=== PATIENT | female | born 1945 | race Caucasian/White ===

== ENCOUNTER → 2016-09-11 | Outpatient (CLI) | payer MEDICARE ==
--- NOTE | 2016-09-13 10:07 | MM ---
Reason for exam: screening (asymptomatic). Last mammogram was performed 1 year and 2 months ago. History: Patient is postmenopausal. Family history of breast cancer in maternal aunt at age 60. Benign cyst aspiration of the left breast, 1999. Benign excisional biopsy of the left breast, 1999. Physical Findings: A clinical breast exam by your physician is recommended on an annual basis and results should be correlated with mammographic findings. MG 3D Screening Mammo W/Cad Bilateral CC and MLO view(s) were taken. Prior study comparison: July 05, 2015, bilateral MG screening mammo w CAD. June 16, 2014, bilateral MG screening mammo w CAD. The breast tissue is heterogeneously dense. This may lower the sensitivity of mammography. No significant changes when compared with prior studies. ASSESSMENT: Benign, BI-RAD 2 RECOMMENDATION: Routine screening mammogram of both breasts in 1 year.
== END | disposition home or self-care (01) ==
LOC: RADMAMWWP 10:51
PROVIDERS: ATTEND Family Medicine
DX: Z12.31 Encounter for screening mammogram for malignant neoplasm of breast (principal)
CPT/HCPCS: 77063; G0202

== ENCOUNTER → 2017-11-21 | Outpatient (CLI) | payer MEDICARE ==
--- NOTE | 2017-11-21 13:13 | MR ---
EXAMINATION TYPE: MR shoulder RT wo con DATE OF EXAM: 11/21/2017 12:23 PM COMPARISON: NONE HISTORY: Rotator cuff tear or rupture of R shoulder, pain TECHNIQUE: Multiplanar multispin echo imaging of the right shoulder was performed. FINDINGS: Rotator cuff : High-grade Full thickness partial tear of the supraspinatus tendon. Several fibers are intact. No evidence for muscle retraction or atrophy at this time. Tendinosis of the subscapularis t endon noted. Infraspinatus is intact. Bursa: No bursal effusion or thickening is seen. Musculature: There is no muscular tear, contusion, or atrophy. Acromioclavicular joint : Moderate AC joint arthropathy. Subacromial spurring. Elevation of the right humeral head relative to the central glenoid axis contributing to severe subacromial impingement. Osseous structures : There are no fractures or regions of abnormal bone marrow signal intensity. Long biceps tendon : The biceps tendon is normally situated within the bicipital groove. No complete or partial biceps tendon tear is present. Tendinosis of the intra-articular portion of the biceps ten don. Glenohumeral Joint fluid : Small amount of fluid within the subacromial subdeltoid bursa. Cartilage and Bone : No focal hyaline cartilage defects are noted. No Hill-Sachs, reverse Hill-Sachs, or bony Bankart lesions are seen. Labrum : There are no SLAP or soft tissue Bankart lesions. No paralabral cysts are seen. OTHER FINDINGS : none IMPRESSION: 1. High-grade Full thickness partial tear of the supraspinatus tendon. Several fibers are intact. No evidence for muscle retraction or atrophy at this time.
== END | disposition home or self-care (01) ==
LOC: RADMRIMAIN 11:49
PROVIDERS: ATTEND Family Medicine
DX: M75.111 Incomplete rotator cuff tear or rupture of right shoulder, not specified as traumatic (principal)

== ENCOUNTER → 2017-12-06 | Outpatient (CLI) | payer MEDICARE ==
--- NOTE | 2017-12-09 13:40 | MM ---
Reason for exam: screening (asymptomatic). Last mammogram was performed 1 year and 3 months ago. History: Patient is postmenopausal. Family history of breast cancer in maternal aunt at age 60. Benign cyst aspiration of the left breast, 1999. Benign excisional biopsy of the left breast, 1999. Physical Findings: A clinical breast exam by your physician is recommended on an annual basis and results should be correlated with mammographic findings. MG 3D Screening Mammo W/Cad Bilateral CC and MLO view(s) were taken. Prior study comparison: September 11, 2016, bilateral MG 3d screening mammo w/cad. July 05, 2015, bilateral MG screening mammo w CAD. The breast tissue is heterogeneously dense. This may lower the sensitivity of mammography. No significant changes when compared with prior studies. ASSESSMENT: Benign, BI-RAD 2 RECOMMENDATION: Routine screening mammogram of both breasts in 1 year.
== END | disposition home or self-care (01) ==
LOC: RADMAMWWP 10:45
PROVIDERS: ATTEND Family Medicine
DX: Z12.31 Encounter for screening mammogram for malignant neoplasm of breast (principal)
CPT/HCPCS: 77063; 77067

== ENCOUNTER 2018-02-24 13:41 | Observation (INO) | payer MEDICARE ==
[2018-02-24] MEDS ORDERED: SODIUM CHLORIDE 0.9% 1,000 ML IV STA (14:29)
[2018-02-24] MEDS ORDERED: MORPHINE SULFATE 2 MG/ML SYRINGE IV STA (14:34)
--- NOTE | 2018-02-24 14:35 | ED ---
General Adult HPI - General Chief complaint: Recheck/Abnormal Lab/Rx Stated complaint: abn EKG Time Seen by Provider: 02/24/18 14:14 Source: patient, RN notes reviewed Mode of arrival: ambulatory Limitations: no limitations - History of Present Illness Initial comments: Patient is a pleasant 72-year-old female presenting to the emergency Department with complaints of back discomfort. Onset was last night. Discomfort feels like an ache or pressure. Discomfort is near the bra line. Discomfort is somewhat positional. Patient does not feel short of breath. No chest pain. No history of similar symptoms previously. Patient was over at the doctor's office and had EKG and was advised to come to the emergency department. Patient states symptoms are not that bad at this time. - Related Data Home Medications Medication Instructions Recorded Confirmed Atorvastatin [Lipitor] 10 mg PO HS 02/24/18 02/24/18 Losartan [Cozaar] 50 mg PO DAILY 02/24/18 02/24/18 Sodium Chloride 5% Ophth Soln 1 drops LEFT EYE Q4H 02/24/18 02/24/18 [Rodney 128] Sodium Chloride 5% Ophth Soln 1 drops RIGHT EYE Q6H 02/24/18 02/24/18 [Rodney 128] Allergies Allergy/AdvReac Type Severity Reaction Status Date / Time Tetanus Vaccines and Toxoid Allergy Rash/Hives. Verified 02/24/18 13:59 [Tetanus Vaccines & Toxoid] NAUSEA/VOMITING azithromycin AdvReac Nausea/"AWFUL Verified 02/24/18 14:40 [From Zithromax Z-Juan A] TASTE IN MOUTH" Review of Systems ROS Statement: Those systems with pertinent positive or pertinent negative responses have been documented in the HPI. ROS Other: All systems not noted in ROS Statement are negative. Constitutional: Denies: fever Eyes: Denies: eye pain ENT: Denies: ear pain Respiratory: Denies: cough Cardiovascular: Denies: chest pain Endocrine: Denies: fatigue Gastrointestinal: Denies: abdominal pain Genitourinary: Denies: dysuria Musculoskeletal: Reports: back pain Skin: Denies: rash Neurological: Denies: weakness Past Medical History Additional Past Medical History / Comment(s): PALPATATIONS. 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 History of Any Multi-Drug Resistant Organisms: None Reported Past Surgical History: Breast Surgery, Hysterectomy Additional Past Surgical History / Comment(s): Bilat. cataract surgery Past Anesthesia/Blood Transfusion Reactions: No Reported Reaction Past Psychological History: No Psychological Hx Reported Smoking Status: Never smoker Past Alcohol Use History: None Reported Past Drug Use History: None Reported General Exam Limitations: no limitations General appearance: alert, in no apparent distress Head exam: Present: atraumatic Eye exam: Present: normal appearance, PERRL ENT exam: Present: normal oropharynx Neck exam: Present: normal inspection Respiratory exam: Present: normal lung sounds bilaterally. Absent: chest wall tenderness Cardiovascular Exam: Present: regular rate, normal rhythm Expanded Peripheral pulses: 2+: Radial (R), Radial (L), Posterior Tibialis (R), Posterior Tibialis (L) GI/Abdominal exam: Present: soft. Absent: distended, tenderness Extremities exam: Present: normal inspection. 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 MD 166. QRS 94. QT 422. QTC 468. Left axis. LVH. Repolarization changes. Medical Decision Making - Medical Decision Making Patient reevaluated and resting comfortably in bed. Patient and family updated on results and plan. Case was discussed in detail with Dr. Parra, covering for Dr. medina, who will admit for Dr. Griffith. Cardiology will be consulted. Patient is made aware of aneurysm and need for lifelong evaluation regarding this. - Lab Data Result diagrams: 02/24/18 14:20 02/24/18 14:20 Lab Results 02/24/18 02/24/18 02/24/18 Range/Units 14:20 14:20 14:20 WBC 6.8 (3.8-10.6) k/uL RBC 4.72 (3.80-5.40) m/uL Hgb 15.5 (11.4-16.0) gm/dL Hct 44.9 (34.0-46.0) % MCV 95.2 (80.0-100.0) fL MCH 32.9 (25.0-35.0) pg MCHC 34.5 (31.0-37.0) g/dL RDW 14.0 (11.5-15.5) % Plt Count 252 (150-450) k/uL Neutrophils % 72 % Lymphocytes % 20 % Monocytes % 5 % Eosinophils % 1 % Basophils % 1 % Neutrophils # 4.9 (1.3-7.7) k/uL Lymphocytes # 1.4 (1.0-4.8) k/uL Monocytes # 0.3 (0-1.0) k/uL Eosinophils # 0.1 (0-0.7) k/uL Basophils # 0.0 (0-0.2) k/uL PT (9.0-12.0) sec INR (<1.2) APTT (22.0-30.0) sec Sodium 141 (137-145) mmol/L Potassium 4.0 (3.5-5.1) mmol/L Chloride 103 (98-107) mmol/L Carbon Dioxide 30 (22-30) mmol/L Anion Gap 8 mmol/L BUN 14 (7-17) mg/dL Creatinine 0.70 (0.52-1.04) mg/dL Est GFR (CKD-EPI)AfAm >90 (>60 ml/min/1.73 sqM) Est GFR (CKD-EPI)NonAf 87 (>60 ml/min/1.73 sqM) Glucose 88 (74-99) mg/dL Calcium 9.4 (8.4-10.2) mg/dL Magnesium 2.2 (1.6-2.3) mg/dL Total Bilirubin 0.9 (0.2-1.3) mg/dL AST 25 (14-36) U/L ALT 34 (9-52) U/L Alkaline Phosphatase 46 (38-126) U/L Total Creatine Kinase 66 (30-135) U/L CK-MB (CK-2) 2.1 (0.0-2.4) ng/mL CK-MB (CK-2) Rel Index 3.2 Troponin I <0.012 (0.000-0.034) ng/mL Total Protein 6.4 (6.3-8.2) g/dL Albumin 4.2 (3.5-5.0) g/dL Amylase 86 (30-110) U/L Lipase 113 (23-300) U/L 02/24/18 Range/Units 14:20 WBC (3.8-10.6) k/uL RBC (3.80-5.40) m/uL Hgb (11.4-16.0) gm/dL Hct (34.0-46.0) % MCV (80.0-100.0) fL MCH (25.0-35.0) pg MCHC (31.0-37.0) g/dL RDW (11.5-15.5) % Plt Count (150-450) k/uL Neutrophils % % Lymphocytes % % Monocytes % % Eosinophils % % Basophils % % Neutrophils # (1.3-7.7) k/uL Lymphocytes # (1.0-4.8) k/uL Monocytes # (0-1.0) k/uL Eosinophils # (0-0.7) k/uL Basophils # (0-0.2) k/uL PT 10.4 (9.0-12.0) sec INR 1.1 (<1.2) APTT 22.6 (22.0-30.0) sec Sodium (137-145) mmol/L Potassium (3.5-5.1) mmol/L Chloride (98-107) mmol/L Carbon Dioxide (22-30) mmol/L Anion Gap mmol/L BUN (7-17) mg/dL Creatinine (0.52-1.04) mg/dL Est GFR (CKD-EPI)AfAm (>60 ml/min/1.73 sqM) Est GFR (CKD-EPI)NonAf (>60 ml/min/1.73 sqM) Glucose (74-99) mg/dL Calcium (8.4-10.2) mg/dL Magnesium (1.6-2.3) mg/dL Total Bilirubin (0.2-1.3) mg/dL AST (14-36) U/L ALT (9-52) U/L Alkaline Phosphatase (38-126) U/L Total Creatine Kinase (30-135) U/L CK-MB (CK-2) (0.0-2.4) ng/mL CK-MB (CK-2) Rel Index Troponin I (0.000-0.034) ng/mL Total Protein (6.3-8.2) g/dL Albumin (3.5-5.0) g/dL Amylase (30-110) U/L Lipase (23-300) U/L - Radiology Data Radiology results: report reviewed (Computed tomography scan of the thoracic and abdominal aorta shows mild aneurysm of the upper descending thoracic aorta at 3.3 cm. No dissection.) Disposition Clinical Impression: Thoracic back pain, LVH (left ventricular hypertrophy), Thoracic aortic aneurysm Disposition: ADMITTED IP TO THIS HOSP Is patient prescribed a controlled substance at d/c from ED?: No Referrals: Siva Griffith DO [Primary Care Provider] - 1-2 days Decision Time: 16:50
[2018-02-24 14:51] LABS: Basophils % (A) 1 %; Eosinophils # (A) 0.1 k/uL (0-0.7); Eosinophils % (A) 1 %; HCT 44.9 % (34.0-46.0); HGB 15.5 gm/dL (11.4-16.0); Lymphocytes # (A) 1.4 k/uL (1.0-4.8); Lymphocytes % (A) 20 %; MCH 32.9 pg (25.0-35.0); MCHC 34.5 g/dL (31.0-37.0); MCV 95.2 fL (80.0-100.0); Mean Platelet Volume 6.5; Monocytes # (A) 0.3 k/uL (0-1.0); Monocytes % (A) 5 %; Neutrophils # (A) 4.9 k/uL (1.3-7.7); Neutrophils % (A) 72 %; Platelet Count 252 k/uL (150-450); RBC 4.72 m/uL (3.80-5.40); WBC 6.8 k/uL (3.8-10.6)
[2018-02-24 15:02] LABS: ALT 34 U/L (9-52); AST 25 U/L (14-36); Albumin 4.2 g/dL (3.5-5.0); Alkaline Phosphatase 46 U/L (38-126); Amylase 86 U/L (30-110); Anion Gap 8 mmol/L; Blood Urea Nitrogen 14 mg/dL (7-17); Calcium 9.4 mg/dL (8.4-10.2); Carbon Dioxide 30 mmol/L (22-30); Chloride 103 mmol/L (98-107); Glucose 88 mg/dL (74-99); Lipase 113 U/L (23-300); Magnesium 2.2 mg/dL (1.6-2.3); Sodium 141 mmol/L (137-145); Total Bilirubin 0.9 mg/dL (0.2-1.3); Total Protein 6.4 g/dL (6.3-8.2)
[2018-02-24 15:09] LABS: INR 1.1 (<1.2); Partial Thromboplastin Time 22.6 sec (22.0-30.0); Prothrombin Time 10.4 sec (9.0-12.0)
[2018-02-24 15:12] LABS: Creatine Kinase 66 U/L (30-135)
[2018-02-24 15:24] LABS: Creatine Kinase MB 2.1 ng/mL (0.0-2.4); Troponin I <0.012 ng/mL (0.000-0.034)
--- NOTE | 2018-02-24 16:37 | CT ---
EXAMINATION TYPE: CT angio thoracic/abd aorta DATE OF EXAM: 02/24/2018 COMPARISON: NONE HISTORY: 72-year-old female complains of left side scapular back pain. TECHNIQUE: Contiguous axial scanning of the chest, abdomen, and pelvis performed without and with IV Contrast, patient injected with 100 mL of Isovue 370. Coronal/sagittal MIP reconstructions performed. 3-D reconstructions generated on a dedicated independent workstation. CT DLP: 643 mGycm Automated exposure control for dose reduction was used. FINDINGS: Chest: Heart normal size without pericardial effusion. No evidence for acute intramural hematoma. Motion artifacts at the aortic root and ascending aorta. N o evidence for aortic dissection. There is conventional arch vessel branching anatomy. Mild aneurysm upper descending thoracic aorta 3. 3 cm. Otherwise, remainder of the aorta is normal caliber. No thoracic lymphadenopathy. Evaluation of the lung shows streaky dependent atelectasis. No consolidation or pleural effusion. ABDOMEN: Arterial phase imaging of the liver, gallbladder, adrenal glands, spleen, and pancreas show no gross anomaly. Tiny subcentimeter hypodensity posterior right kidney axial image 61 likely a tiny cortical cyst. The re is bilateral renal cortical thinning suggesting underlying chronic kidney disease. No dilated small bowel, free fluid, or free air. No mesenteric or retroperitoneal lymphadenopathy. Moderate stool in the right side of the colon. No pericolonic inflammatory change. No evidence for AAA. Pelvis: Bladder urine distended. Uterus surgically absent. Both ovaries are seen. No abnormal fluid collectio n in the pelvis or pelvic lymphadenopathy. Bones: Degenerative disc disease L3-L4. Facet arthropathy mid to lower lumbar spine. Levoconvex scoliosis faye mbar spine. No osseous disc process. IMPRESSION: MILD ANEURYSM OF THE UPPER DESCENDING THORACIC AORTA AT 3.3 CM. NO EVIDENCE FOR AORTIC DISSECTION, OT HER ACUTE AORTIC PATHOLOGY, OR ACUTE PULMONARY PROCESS.
[2018-02-24] MEDS ORDERED: ASPIRIN 81 MG PO STA (16:50)
[2018-02-24] MEDS ORDERED: NITROGLYCERIN SL TABS 0.4 MG TAB SUBLINGUAL PRN (16:50)
[2018-02-24] MEDS: NITROGLYCERIN OINT 1 INCH/GM PACKET TOPICAL SCH ×2 (17:57→23:15)
[2018-02-24 20:41] LABS: Creatine Kinase 52 U/L (30-135)
[2018-02-24 20:47] VITALS: RESP 16
[2018-02-24 20:55] LABS: Creatine Kinase MB 1.4 ng/mL (0.0-2.4); Troponin I <0.012 ng/mL (0.000-0.034)
[2018-02-24] MEDS ORDERED: ATORVASTATIN 10 MG TAB PO SCH (22:00)
[2018-02-25 02:51] LABS: Cholesterol 123 mg/dL (<200); HDL Cholesterol 40 mg/dL (40-60); LDL Cholesterol,Calculated 62 mg/dL (0-99); Triglycerides 103 mg/dL (<150)
[2018-02-25 03:15] LABS: Creatine Kinase MB 1.4 ng/mL (0.0-2.4); Troponin I 0.016 ng/mL (0.000-0.034)
[2018-02-25] MEDS: SODIUM CHLORIDE 5% OPHTH DROPS 15 ML BTL RIGHT EYE SCH ×3 (05:11→18:40)
[2018-02-25] MEDS: SODIUM CHLORIDE 5% OPHTH DROPS 15 ML BTL LEFT EYE SCH ×5 (05:11→19:41)
--- NOTE | 2018-02-25 05:18 | HP ---
HISTORY AND PHYSICAL CHIEF COMPLAINTS: Upper back pain and palpitation. HISTORY OF PRESENT ILLNESS: This 72-year-old woman with a past medical history of multiple medical problems including hypertension, hyperlipidemia, history of pneumonia, history of palpitations, appendectomy, breast surgery being followed by Dr. Griffith in the outpatient setting was complaining of back pain. The patient was watching TV last night and the patient had excruciating upper back pain, pain 8 out of 10 in intensity, with radiation in the upper back on the to the left side with some palpitations. The patient also had other joint pains and patient thought it was part of the same syndrome and the patient did not come to the hospital until today because of the lack of improvement of the pain. After coming to the hospital, patient was given medication. The patient is much better. CT scan showed mild aneurysm of the upper descending thoracic aorta at 3.3 cm. No evidence of aortic dissection was noted. No other aortic pathology was also noted and patient admitted to the hospital for further evaluation and treatment. There is no history of fever, rigors or chills. No history of headache, loss of consciousness, seizures. The basic labs, CBC and BMP, troponins are normal. The EKG on admission showed left ventricular hypertrophy and nonspecific ST-T changes. PAST MEDICAL HISTORY: History of hyperlipidemia, history of DJD, history of pneumonia, history of breast surgery, appendectomy. MEDICATIONS: Prior to admission include home medications are: 1. Reji ophthalmic ointment, ophthalmic drops. 2. Cozaar 50 mg daily. 3. Lipitor 10 mg q.h.s. ALLERGIES: ARE TETANUS TOXOID AND AZITHROMYCIN. FAMILY HISTORY: History of coronary artery disease, diabetes and colon cancer in the family. SOCIAL HISTORY: No history of smoking. No history of alcohol intake. REVIEW OF SYSTEMS: ENT: No diminished vision. No diminished hearing. CARDIOVASCULAR: As mentioned earlier. RESPIRATIONS: As mentioned earlier. GI: No nausea or vomiting. : No dysuria or hematuria. NERVOUS SYSTEM: No numbness or weakness. ALLERGY/IMMUNOLOGY: No asthma or hayfever. MUSCULOSKELETAL: As mentioned earlier. HEMATOLOGY/ONCOLOGY: No history of anemia. ENDOCRINE: No history of diabetes or hypothyroidism. CONSTITUTIONAL: As mentioned earlier. DERMATOLOGY: Negative. RHEUMATOLOGY: Negative. PSYCHIATRY: As mentioned earlier. PHYSICAL EXAMINATION: Alert, oriented times three. VITAL SIGNS: Pulse 63, blood pressure 126/60, respirations 16, temperature 97.6, pulse ox 94% on room air. HEENT: Conjunctivae normal. Oral mucosa moist. NECK is no jugular venous distention. No carotid bruit. No lymph node enlargement. CARDIOVASCULAR: S1-S2 muffled. No S3, no S4. RESPIRATORY: Breath sounds diminished in the bases. No rhonchi. No crackles. ABDOMEN: Soft, nontender. No mass palpable. LEGS: No edema. No swelling. CENTRAL NERVOUS SYSTEM: Higher functions as mentioned earlier. Moves all 4 limbs. No focal motor or sensory deficits. Lymphatics: No lymph nodes palpable in the neck, axillae or groin. SKIN: No ulcer, rash or bleeding. LAB STUDIES: CBC within normal limits. CMP within normal limits. ASSESSMENT: 1. Upper back and chest palpitations, rule out coronary artery disease. 2. 3.3 cm mild aneurysm of the upper descending thoracic aorta without any dissection or other pathology. 3. Hypertension. 4. Hyperlipidemia. 5. Degenerative joint disease. 6. History of pneumonia. 7. History of palpitations. 8. History of Fuchs dystrophy. RECOMMENDATIONS AND DISCUSSION: In this 72-year-old woman who presented with multiple complex medical issues. We will monitor the patient closely. Continue the current medications. Continue symptomatic treatment. We will continue with beta blockers and as well as aspirin. Cardiology consultation. Possible stress test. Otherwise, the home medications are reconciled. I would also recommend repeat labs in the morning. N.p.o. after midnight. The prognosis guarded because of multiple complex medical issues and further recommendations to follow. Discussed with the family. A copy of dictation being forwarded to Dr. Griffith, who is the primary physician. MMODL / IJN: [id number] /
[2018-02-25] MEDS ORDERED: ENOXAPARIN 60 MG/0.6 ML SYRINGE SQ STA (07:29)
[2018-02-25] MEDS ORDERED: NITROGLYCERIN SL TABS 0.4 MG TAB SUBLINGUAL PRN (07:29)
[2018-02-25] MEDS ORDERED: ASPIRIN 325 MG TAB PO STA (07:29)
[2018-02-25] MEDS ORDERED: ALPRAZolam 0.5 MG TAB PO PRN (07:29)
[2018-02-25] MEDS ORDERED: ALPRAZolam 0.25 MG TAB PO PRN (07:29)
[2018-02-25] MEDS ORDERED: SODIUM CHLORIDE 0.9% 1,000 ML in EMPTY BAG 1 BAG IV ONE (07:29)
[2018-02-25] MEDS ORDERED: ATORVASTATIN 80 MG TAB PO STA (07:29)
[2018-02-25] MEDS ORDERED: METOPROLOL TARTRATE 12.5 MG TAB PO SCH (09:00)
[2018-02-25] MEDS ORDERED: LOSARTAN 50 MG TAB PO SCH (09:00)
--- NOTE | 2018-02-25 10:01 | CONS ---
CONSULTATION This is a 72-year-old lady with a history of hypertension and hyperlipidemia, sees Dr. Griffith in the outpatient setting. She came into the hospital with discomfort in the upper back and also in the anterior chest and both shoulders. The quality of the pain is somewhat atypical. However, she has precordial ST-T changes raising the possibility of ischemia with normal troponins. She had a CT scan of the chest that was performed and there is no evidence of any aortic pathology. Her discomfort seemed to have occurred when she was not doing much physical activity. She does carry a diagnosis of hypertension but her blood pressure was not significantly elevated when she came into the emergency room. At the time of my evaluation, her upper back discomfort has resolved, but she does have discomfort in the shoulders, very nondescript discomfort, feels like an achy sensation in the upper chest and mostly in the back, but she is quite comfortable. She was apparently at her doctor's office and EKG was performed and she was sent here. PAST MEDICAL HISTORY: 1. Hypertension. 2. Hyperlipidemia. 3. No evidence of prior myocardial infarction, CVA, or diabetes. MEDICATIONS: At home include Lipitor 10 mg daily, losartan 50 mg daily. This patient is status post hysterectomy and some breast surgery and cataract surgery. ALLERGIES: She is allergic to ZITHROMAX. PHYSICAL EXAMINATION: Blood pressure is 128/70, pulse rate is 64 per minute, regular. HEENT: Unremarkable. Fundus was not examined by me. Neck is supple. There is no JVD. I do not hear a carotid bruit. Heart exam reveals S1, S2 with a short systolic murmur at left sternal border. Lungs are clear. Abdomen is soft, nontender. Lower extremities reveal normal pulses. No edema. Central nervous system is normal. EKG revealed sinus mechanism with ST-T abnormality and voltage criteria for LVH, ischemia cannot be excluded. LABORATORY DATA: Revealed unremarkable troponins. IMPRESSION: 1. Chest and upper back discomfort, cannot exclude angina. No evidence of any dissection or any aortic pathology of significance. Troponins are unremarkable. 2. Hypertension. 3. Hypercholesterolemia. RECOMMENDATION: Patient has nondescript chest pain, EKG is abnormal. I am recommending that we will give her some Lovenox and beta marguerite. Proceed with coronary angiography. Based on findings, will make further recommendations. Will also do an echocardiogram. I discussed my thoughts in detail with the patient. Thank you very much for the consult. ELLYL / IJN: [id number] /
[2018-02-25] MEDS ORDERED: IV FLUID CONTINUATION 700 ML IV ONE (10:40)
[2018-02-25] MEDS ORDERED: diphenhydrAMINE 50 MG/ML 1 ML VIAL IVP ONE (11:12)
[2018-02-25] MEDS ORDERED: MIDAZOLAM 2 MG/2 ML VIAL IVP ONE (11:12)
[2018-02-25] MEDS ORDERED: LIDOCAINE 1% (PF) 10MG/ML VIAL SQ ONE (11:14)
[2018-02-25] MEDS ORDERED: LIDOCAINE 1% INJ 10MG/ML (20 ML MDV) SQ ONE (11:14)
[2018-02-25] MEDS: VERAPAMIL SYRINGE (5 MG/10 ML) INTRAARTER ONE ×2 (11:17→11:30)
[2018-02-25] MEDS ORDERED: IOPAMIDOL-370 100ML BTL INJ ONE (11:31)
[2018-02-25] MEDS ORDERED: RX INFO: IV CONTRAST WAS GIVEN 1 EACH MISC MISCELLANE PRN (11:36)
[2018-02-25] MEDS ORDERED: SODIUM CHLORIDE 0.9% 1,000 ML IV SCH (11:45)
--- NOTE | 2018-02-25 12:05 | ECHOF ---
Referral Reason:Pain MEASUREMENTS -------- HEIGHT: 154.9 cm WEIGHT: 57.2 kg BP: RVIDd: 2.5 cm (< 3.3) IVSd: 1.5 cm (0.6 - 1.1) LVIDd: 3.3 cm (3.9 - 5.3) LVPWd: 1.3 cm (0.6 - 1.1) IVSs: 1.7 cm LVIDs: 1.6 cm LVPWs: 1.7 cm LAESV Index (A-L): 25.42 ml/m Ao Diam: 2.8 cm (2.0 - 3.7) AV Cusp: 1.8 cm (1.5 - 2.6) LA Diam: 2.3 cm (2.7 - 3.8) MV EXCURSION: 17.007 mm (> 18.000) MV EF SLOPE: 73 mm/s (70 - 150) EPSS: 0.1 cm MV E Boris: 0.79 m/s MV DecT: 172 ms MV A Boris: 1.06 m/s MV E/A Ratio: 0.74 RAP: 5.00 mmHg RVSP: 16.65 mmHg FINDINGS -------- Sinus rhythm. This was a technically difficult study with suboptimal views. The cavity size is decreased. There is moderate concentric left ventricular hypertrophy. Overall left ventricular systolic function is normal with, an EF between 55 - 60 %. The right ventricle is normal in size. The left atrium is normal in size. The right atrium is normal in size. Lumason used The aortic valve is trileaflet, and appears structurally normal. No aortic stenosis or regurgitation. The mitral valve leaflets are mildly thickened. Mild mitral annular calcification present. Mild m itral regurgitation is present. Mild tricuspid regurgitation present. The right ventricular systolic pressure, as measured by Doppl er, is 16.65mmHg. Pulmonic valve appears structurally normal. The aortic root size is normal. The pericardium is normal. CONCLUSIONS -------- 1. Sinus rhythm. 2. This was a technically difficult study with suboptimal views. 3. The cavity size is decreased. 4. There is moderate concentric left ventricular hypertrophy. 5. Overall left ventricular systolic function is normal with, an EF between 55 - 60 %. 6. The right ventricle is normal in size. 7. The left atrium is normal in size. 8. The right atrium is normal in size. 9. Lumason used 10. The aortic valve is trileaflet, and appears structurally normal. No aortic stenosis or regurgitat ion. 11. The mitral valve leaflets are mildly thickened. 12. Mild mitral annular calcification present. 13. Mild mitral regurgitation is present. 14. Mild tricuspid regurgitation present. 15. The right ventricular systolic pressure, as measured by Doppler, is 16.65mmHg. 16. Pulmonic valve appears structurally normal. 17. The aortic root size is normal. 18. The pericardium is normal. ELECTRIC CELL TENDER: Francy Osorio RDCS
--- NOTE | 2018-02-25 12:16 | CC ---
CARDIAC CATHETERIZATION REPORT DATE OF SERVICE: 02/25/2018. PROCEDURE: Left heart catheterization, coronary angiography. PERFORMED BY: Dr. Alyssa Velázquez. Moderate conscious sedation time was 18 minutes. Patient was administered Versed and Benadryl. Oxygen saturation, hemodynamics and EKG were monitored closely. CLINICAL INFORMATION: Mrs. Harmony Mcdaniel is a 72-year-old lady with a history of hypertension who came to the hospital with chest pain had also mid scapular discomfort with radiation to shoulders. Her CT angiography was negative for any aortic pathology. Because of significant EKG changes suggestive of ischemia as well as LVH, she was advised coronary angiography. Risks, benefits, options, rationale were discussed. PROCEDURE NOTE: Under local anesthesia and strict aseptic precautions, a 6-Sinhala introducer was placed in the right radial artery. Using an Ultimate 1 catheter I performed selective coronary angiography of the left system and checked LV pressures. Using a 3.5 curve right Luis Armando catheter, I performed selective coronary angiography of the right coronary artery. LV gram was not performed. CARDIAC CATHETERIZATION FINDINGS: The left ventricle end-diastolic pressure is about 20 mmHg without any gradient across the aortic valve. CORONARY ANGIOGRAPHY FINDINGS: RIGHT CORONARY ARTERY: Small nondominant vessel with limited amount of myocardium being supplied by it. LEFT MAIN CORONARY ARTERY: This is a short patent vessel free of significant disease that immediately bifurcates into LAD and circumflex. LEFT ANTERIOR DESCENDING CORONARY ARTERY: Good caliber vessel extends along the anterior wall, gives off septal and diagonal branches, runs all the way to the apex supplies a sizable amount of myocardium, curves over the apex to supply the inferoapical portion of left ventricle. In the midportion, right after septal and diagonal branches, there is a 35% narrowing involving the LAD. LEFT POSTERIOR CIRCUMFLEX CORONARY ARTERY: Technically a very dominant vessel, gives off 3 obtuse marginal branches and distally continues as a posterolateral branch. There is no significant disease involving the circumflex or its branches other than minor irregularities. It appears that the third obtuse marginal branch continues as a PDA and the distal circumflex continues as a PLV branch. There is no significant disease in involving circumflex system. LEFT VENTRICULOGRAM: This was not performed. FINAL IMPRESSION: This patient has a left dominant system, minor irregularities, no significant disease and acceptable filling pressures. Left ventriculogram was not performed. RECOMMENDATIONS: Continued medical therapy is advised. Beta blockers were added on. LV function will be assessed by echocardiogram. The medical therapy is advised and patient will be discharged later on today if she remains stable. ZURDO / JIM: [id number] /
--- NOTE | 2018-02-25 12:22 | LTR ---
February 25, 2018 Re: Harmony Mcdaniel Dear Dr. Griffith: Thank you for the opportunity to participate in the care of Mrs. Mcdaniel. I am pleased to report to you that this lady does not have any significant obstructive CAD. She has what seems to be hypertrophic cardiomyopathy of nonobstructive type for which we will add beta blockers. No aggressive therapy is advised. Thank you for your referral and please call for questions. With kindest regards. Sincerely yours, MD ZURDO Osman / BJN: [id number] /
[2018-02-25 19:49] VITALS: BP 147/69; PULSE 70; TEMP 98.4
--- NOTE | 2018-02-25 22:05 | DS ---
DISCHARGE SUMMARY DATE OF SERVICE: 02/25/2018 FINAL DIAGNOSES: 1. Upper back pain and chest palpitation, possibly musculoskeletal. Cardiac catheterization showed minor irregularities and no significant coronary artery disease. 2. 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 3. Hypertension. 4. Hyperlipidemia. 5. Degenerative joint disease. 6. History of pneumonia. 7. History of palpitation. 8. History of Fuchs dystrophy. DISCHARGE DISPOSITION: The patient will be discharged in stable condition with guarded prognosis. Cardiology recommended that the patient follow up in the outpatient setting. HISTORY OF PRESENT ILLNESS: This 72-year-old woman with a past medical history of multiple medical problems, being followed by Dr. Griffith in the outpatient setting, was admitted with upper back and chest palpitations. Myocardial infarction was ruled out. Cardiology performed a stress test which showed no significant disease. On exam, vitals are stable. CARDIOVASCULAR SYSTEM: S1, S2 muffled. ABDOMEN: Soft. NERVOUS SYSTEM: No focal deficit. The patient will be discharged in stable condition with guarded prognosis. DISCHARGE ADVICE AND MEDICATIONS: 1. Diet is cardiac. 2. Activity limited until followup.. 3. Follow up with Dr. Griffith in 2 to 3 days. 4. Follow up with Dr. Janine Velázquez as advised. 5. Lipitor 10 mg at bedtime. 6. Cozaar 50 mg p.o. daily. 7. Lopressor 12.5 mg p.o. daily. 8. Ophthalmic ointments to be continued. Once again, the patient will be discharged in stable condition with guarded prognosis. MMODL / IJN: [id number] /
[2018-02-26] MEDS ORDERED: ASPIRIN 325 MG TAB PO SCH (09:00)
[2018-02-26] MEDS ORDERED: ASPIRIN 81 MG PO SCH (09:00)
== END 2018-02-25 20:21 | disposition home or self-care (01) ==
LOC: EC 13:41 → 3OBS 16:50
PROVIDERS: ADMIT Internal Medicine; ATTEND Internal Medicine
DX: M54.6 Pain in thoracic spine (principal); R00.2 Palpitations; I71.2 Thoracic aortic aneurysm, without rupture; E78.5 Hyperlipidemia, unspecified; Z87.01 Personal history of pneumonia (recurrent); Z88.1 Allergy status to other antibiotic agents; Z88.7 Allergy status to serum and vaccine; Z83.3 Family history of diabetes mellitus; Z82.49 Family history of ischemic heart disease and other diseases of the circulatory system; Z80.0 Family history of malignant neoplasm of digestive organs; I11.9 Hypertensive heart disease without heart failure; M19.90 Unspecified osteoarthritis, unspecified site; E78.00 Pure hypercholesterolemia, unspecified; H18.51 Endothelial corneal dystrophy; Z79.899 Other long term (current) drug therapy
CPT/HCPCS: 99285; 96374 ×2; 96361 ×9; 96372; 36415; 93005; 93458; 80061; 80053; 82150; 82550 ×2; 82553 ×2; 83690; 83735; 84484 ×2; 85025; 85610; 85730; 75635; 71275; G0378 ×2; C8929; C1769 ×2; C1894; J2250; J1200; J2001; J1650; J2270; Q9950; Q9967 ×2; 93306

== ENCOUNTER → 2019-04-29 | Outpatient (CLI) | payer MEDICARE ==
--- NOTE | 2019-04-30 11:19 | MM ---
Reason for exam: screening (asymptomatic). Last mammogram was performed 1 year and 5 months ago. History: Patient is postmenopausal. Family history of breast cancer in maternal aunt at age 60. Benign cyst aspiration of the left breast, 1999. Benign excisional biopsy of the left breast, 1999. Physical Findings: A clinical breast exam by your physician is recommended on an annual basis and results should be correlated with mammographic findings. MG 3D Screening Mammo W/Cad Bilateral CC and MLO view(s) were taken. Prior study comparison: December 06, 2017, bilateral MG 3d screening mammo w/cad. September 11, 2016, bilateral MG 3d screening mammo w/cad. The breast tissue is heterogeneously dense. This may lower the sensitivity of mammography. No suspicious abnormality. Post biopsy change on the left. Left biopsy marker noted. No significant changes when compared with prior studies. ASSESSMENT: Benign, BI-RAD 2 RECOMMENDATION: Routine screening mammogram of both breasts in 1 year.
== END | disposition home or self-care (01) ==
LOC: RADMAMWWP 13:50
PROVIDERS: ATTEND Family Medicine
DX: Z12.31 Encounter for screening mammogram for malignant neoplasm of breast (principal)
CPT/HCPCS: 77063; 77067

== ENCOUNTER → 2020-05-20 | Outpatient (CLI) | payer MEDICARE ==
--- NOTE | 2020-05-24 11:14 | MM ---
Reason for exam: screening (asymptomatic). Last mammogram was performed 1 year and 1 month ago. History: Patient is postmenopausal. Family history of breast cancer in maternal aunt at age 60. Benign cyst aspiration of the left breast, 1999. Benign excisional biopsy of the left breast, 1999. Physical Findings: A clinical breast exam by your physician is recommended on an annual basis and results should be correlated with mammographic findings. MG 3D Screening Mammo W/Cad Bilateral CC and MLO view(s) were taken. Prior study comparison: April 29, 2019, bilateral MG 3d screening mammo w/cad. December 06, 2017, bilateral MG 3d screening mammo w/cad. The breast tissue is heterogeneously dense. This may lower the sensitivity of mammography. Previous mammotome biopsy in the left breast. Post excision changes on the left. No significant changes when compared with prior studies. ASSESSMENT: Benign, BI-RAD 2 RECOMMENDATION: Routine screening mammogram of both breasts in 1 year.
== END | disposition home or self-care (01) ==
LOC: RADMAMWWP 11:14
PROVIDERS: ATTEND Family Medicine
DX: Z12.31 Encounter for screening mammogram for malignant neoplasm of breast (principal)
CPT/HCPCS: 77063; 77067

== ENCOUNTER 2020-11-10 11:42 | Inpatient (IN) | payer MEDICARE ==
[2020-11-10] MEDS ORDERED: SODIUM CHLORIDE 0.9% 1,000 ML IV STA (12:27)
[2020-11-10] MEDS ORDERED: ONDANSETRON 4 MG/2 ML VIAL IVP STA (12:27)
[2020-11-10 12:46] LABS: Basophils # (A) 0.1 k/uL (0-0.2); Basophils % (A) 1 %; Eosinophils % (A) 1 %; HCT 42.8 % (34.0-46.0); HGB 15.1 gm/dL (11.4-16.0); Lymphocytes # (A) 0.5 k/uL (1.0-4.8); Lymphocytes % (A) 13 %; MCH 32.9 pg (25.0-35.0); MCHC 35.3 g/dL (31.0-37.0); MCV 93.3 fL (80.0-100.0); Mean Platelet Volume 7.9; Monocytes # (A) 0.3 k/uL (0-1.0); Monocytes % (A) 7 %; Neutrophils # (A) 2.8 k/uL (1.3-7.7); Neutrophils % (A) 77 %; Platelet Count 149 k/uL (150-450); RBC 4.59 m/uL (3.80-5.40); RDW 12.1 % (11.5-15.5); WBC 3.7 k/uL (3.8-10.6)
[2020-11-10 13:00] LABS: ALT 30 U/L (4-34); AST 42 U/L (14-36); African American GFR (CKD) >90 (>60 ml/min/1.73 sqM); Albumin 4.1 g/dL (3.5-5.0); Alkaline Phosphatase 47 U/L (38-126); Anion Gap 12 mmol/L; Blood Urea Nitrogen 17 mg/dL (7-17); Calcium 8.9 mg/dL (8.4-10.2); Carbon Dioxide 24 mmol/L (22-30); Chloride 101 mmol/L (98-107); Glucose 93 mg/dL (74-99); Lipase 107 U/L (23-300); Magnesium 2.1 mg/dL (1.6-2.3); Non-African American GFR(CKD) 86 (>60 ml/min/1.73 sqM); Potassium 4.2 mmol/L (3.5-5.1); Sodium 137 mmol/L (137-145); Total Bilirubin 0.6 mg/dL (0.2-1.3); Total Protein 6.6 g/dL (6.3-8.2)
--- NOTE | 2020-11-10 13:26 | XR ---
EXAMINATION TYPE: XR chest 1V portable DATE OF EXAM: 11/10/2020 COMPARISON: NONE HISTORY: Cough TECHNIQUE: Single frontal view of the chest is obtained. FINDINGS: There are overlying leads. Patient is rotated. Aorta is dense. There is no focal air space opacity, pleural effusion, or pneumothorax seen. The cardiac silhouette size is within normal limits . The osseous structures are intact, there is a spinal curvature. IMPRESSION: No acute process.
--- NOTE | 2020-11-10 14:11 | ED ---
General Adult HPI - General Chief complaint: Nausea/Vomiting/Diarrhea Stated complaint: NVD Source: patient, RN notes reviewed Mode of arrival: ambulatory Limitations: no limitations - History of Present Illness Initial comments: 75-year-old female with a past medical history of palpitations, hyperlipidemia, osteoporosis, pneumonia presents to the emergency room for a chief complaint of nausea vomiting diarrhea x 1 week. Patient reports that she has had nausea vomiting and diarrhea for the past 4 days. States it is watery diarrhea. States she has been able to drink fluids with this. Patient also admits to cough, minimal shortness of breath. She also complains of a pain in her back when she is coughing. Denies any chest pain. Patient has no other complaints at this time including chest pain, abdominal pain, headache, or visual changes. - Related Data Home Medications Medication Instructions Recorded Confirmed Atorvastatin [Lipitor] 10 mg PO HS 02/24/18 11/10/20 Losartan [Cozaar] 50 mg PO DAILY 02/24/18 11/10/20 Sodium Chloride 5% Ophth Soln 1 drops LEFT EYE Q4H 02/24/18 11/10/20 [Rodney 128] Sodium Chloride 5% Ophth Soln 1 drops RIGHT EYE Q6H 02/24/18 11/10/20 [Rodney 128] Azithromycin [Zithromax Z-pack (6 See Taper PO DAILY 11/10/20 11/10/20 tabs)] Metoprolol Tartrate [Lopressor] 25 mg PO DAILY 11/10/20 11/10/20 amLODIPine [Norvasc] 5 mg PO HS 11/10/20 11/10/20 Allergies Allergy/AdvReac Type Severity Reaction Status Date / Time Tetanus Vaccines and Toxoid Allergy Rash/Hives. Verified 11/10/20 14:00 [Tetanus Vaccines & Toxoid] NAUSEA/VOMITING azithromycin AdvReac Nausea/"AWFUL Verified 11/10/20 14:00 [From Zithromax Z-Juan A] TASTE IN MOUTH" Review of Systems ROS Statement: Those systems with pertinent positive or pertinent negative responses have been documented in the HPI. ROS Other: All systems not noted in ROS Statement are negative. Past Medical History Past Medical History: Eye Disorder, Hyperlipidemia, Osteoarthritis (OA), Pneumonia Additional Past Medical History / Comment(s): PALPATATIONS. 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 cataract surgery 2004, breast biopsy Past Anesthesia/Blood Transfusion Reactions: No Reported Reaction Past Psychological History: No Psychological Hx Reported Smoking Status: Never smoker Past Alcohol Use History: None Reported Past Drug Use History: None Reported - Past Family History Mother Family Medical History: Coronary Artery Disease (CAD), Diabetes Mellitus Father Family Medical History: Coronary Artery Disease (CAD) Sister(s) Family Medical History: No Reported History Brother(s) Family Medical History: No Reported History Son(s) Family Medical History: Coronary Artery Disease (CAD), CVA/TIA Daughter(s) Family Medical History: Cancer Additional Family Medical History / Comment(s): colon cancer General Exam Limitations: no limitations General appearance: alert, in no apparent distress Head exam: Present: atraumatic, normocephalic, normal inspection Eye exam: Present: normal appearance, PERRL, EOMI. Absent: scleral icterus, conjunctival injection, periorbital swelling ENT exam: Present: normal exam, mucous membranes moist Neck exam: Present: normal inspection, full ROM. Absent: tenderness, meningismus, lymphadenopathy Respiratory exam: Present: normal lung sounds bilaterally. Absent: respiratory distress, wheezes, rales, rhonchi, stridor Cardiovascular Exam: Present: regular rate, normal rhythm, normal heart sounds. Absent: systolic murmur, diastolic murmur, rubs, gallop, clicks GI/Abdominal exam: Present: soft, normal bowel sounds. Absent: distended, ten derness, guarding, rebound, rigid Neurological exam: Present: alert Course Vital Signs 11/10/20 11/10/20 12:13 14:07 Temperature 98.8 F 99.6 F Pulse Rate 93 85 Respiratory 18 20 Rate Blood Pressure 129/79 128/74 O2 Sat by Pulse 95 92 L Oximetry EKG Findings - EKG Comments: EKG Findings:: Normal sinus rhythm. Ventricular rate 79, KS interval 178, QTc 502. There are several T-wave inversions noted on the lateral and precordial lead. This was compared to previous EKG from 2018 which is similar in nature. Medical Decision Making - Medical Decision Making Vitals are stable. 92-95% on room air. Patient is well-appearing. CBC shows slight leukopenia 3.7 as well as lymphocytopenia. CMP unremarkable. Coronavirus was detected. Chest x-ray shows no acute process. EKG does show T- wave inversions in the precordial and lateral leads consistent with previous EKG from 2018. Given shortness of breath and troponin was obtained which was slightly elevated at 0.037. Case discussed with patient and son who do prefer patient to be admitted. Case discussed with Dr. Doherty and Sincere. Dr. Post accepts the admission. - Lab Data Result diagrams: 11/10/20 12:33 11/10/20 12:33 Lab Results 11/10/20 11/10/20 11/10/20 Range/Units 12:33 12:33 12:33 WBC 3.7 L (3.8-10.6) k/uL RBC 4.59 (3.80-5.40) m/uL Hgb 15.1 (11.4-16.0) gm/dL Hct 42.8 (34.0-46.0) % MCV 93.3 (80.0-100.0) fL MCH 32.9 (25.0-35.0) pg MCHC 35.3 (31.0-37.0) g/dL RDW 12.1 (11.5-15.5) % Plt Count 149 L (150-450) k/uL MPV 7.9 Neutrophils % 77 % Lymphocytes % 13 % Monocytes % 7 % Eosinophils % 1 % Basophils % 1 % Neutrophils # 2.8 (1.3-7.7) k/uL Lymphocytes # 0.5 L (1.0-4.8) k/uL Monocytes # 0.3 (0-1.0) k/uL Eosinophils # 0.0 (0-0.7) k/uL Basophils # 0.1 (0-0.2) k/uL Sodium 137 (137-145) mmol/L Potassium 4.2 (3.5-5.1) mmol/L Chloride 101 (98-107) mmol/L Carbon Dioxide 24 (22-30) mmol/L Anion Gap 12 mmol/L BUN 17 (7-17) mg/dL Creatinine 0.69 (0.52-1.04) mg/dL Est GFR (CKD-EPI)AfAm >90 (>60 ml/min/1.73 sqM) Est GFR (CKD-EPI)NonAf 86 (>60 ml/min/1.73 sqM) Glucose 93 (74-99) mg/dL Calcium 8.9 (8.4-10.2) mg/dL Magnesium 2.1 (1.6-2.3) mg/dL Total Bilirubin 0.6 (0.2-1.3) mg/dL AST 42 H (14-36) U/L ALT 30 (4-34) U/L Alkaline Phosphatase 47 (38-126) U/L Troponin I 0.037 H* (0.000-0.034) ng/mL Total Protein 6.6 (6.3-8.2) g/dL Albumin 4.1 (3.5-5.0) g/dL Lipase 107 (23-300) U/L Coronavirus (PCR) (Not Detectd) 11/10/20 Range/Units 12:45 WBC (3.8-10.6) k/uL RBC (3.80-5.40) m/uL Hgb (11.4-16.0) gm/dL Hct (34.0-46.0) % MCV (80.0-100.0) fL MCH (25.0-35.0) pg MCHC (31.0-37.0) g/dL RDW (11.5-15.5) % Plt Count (150-450) k/uL MPV Neutrophils % % Lymphocytes % % Monocytes % % Eosinophils % % Basophils % % Neutrophils # (1.3-7.7) k/uL Lymphocytes # (1.0-4.8) k/uL Monocytes # (0-1.0) k/uL Eosinophils # (0-0.7) k/uL Basophils # (0-0.2) k/uL Sodium (137-145) mmol/L Potassium (3.5-5.1) mmol/L Chloride (98-107) mmol/L Carbon Dioxide (22-30) mmol/L Anion Gap mmol/L BUN (7-17) mg/dL Creatinine (0.52-1.04) mg/dL Est GFR (CKD-EPI)AfAm (>60 ml/min/1.73 sqM) Est GFR (CKD-EPI)NonAf (>60 ml/min/1.73 sqM) Glucose (74-99) mg/dL Calcium (8.4-10.2) mg/dL Magnesium (1.6-2.3) mg/dL Total Bilirubin (0.2-1.3) mg/dL AST (14-36) U/L ALT (4-34) U/L Alkaline Phosphatase (38-126) U/L Troponin I (0.000-0.034) ng/mL Total Protein (6.3-8.2) g/dL Albumin (3.5-5.0) g/dL Lipase (23-300) U/L Coronavirus (PCR) Detected A (Not Detectd) Disposition Clinical Impression: Elevated troponin, Lab test positive for detection of COVID-19 virus, Shortness of breath, Cough, Nausea, vomiting, and diarrhea Disposition[facility] Condition: Fair Is patient prescribed a controlled substance at d/c from ED?: No Referrals: Siva Griffith DO [Primary Care Provider] - 1-2 days Time of Disposition: 14:36
[2020-11-10] MEDS ORDERED: ACETAMINOPHEN TAB 325 MG TAB PO STA (14:24)
[2020-11-10] MEDS ORDERED: NALOXONE 0.4 MG/ML 1 ML VIAL IV PRN (14:37)
[2020-11-10] MEDS ORDERED: ACETAMINOPHEN TAB 325 MG TAB PO PRN (14:37)
[2020-11-10] MEDS ORDERED: MORPHINE SULFATE 2 MG/ML SYRINGE IV PRN (14:37)
[2020-11-10] MEDS: DEXAMETHASONE SOD PHOSPHATE 10 MG/ML 1 ML VIAL IV SCH (14:56)
[2020-11-10] MEDS: SODIUM CHLORIDE 0.9% 1,000 ML IV SCH (14:56)
[2020-11-10] MEDS: SODIUM CHLORIDE 5% OPHTH DROPS 15 ML BTL LEFT EYE SCH ×3 (15:15→23:26)
[2020-11-10] MEDS: SODIUM CHLORIDE 5% OPHTH DROPS 15 ML BTL RIGHT EYE SCH ×2 (15:16→20:18)
[2020-11-10] MEDS ORDERED: BENZONATATE 100 MG CAP PO SCH (16:00)
[2020-11-10 17:42] LABS: C Reactive Protein <5.0 mg/L (<10.0); LDH 559 U/L (313-618); Magnesium 1.9 mg/dL (1.6-2.3)
[2020-11-10 18:09] LABS: Appearance,Urine Clear (Clear); Bilirubin,Urine Negative (Negative); Blood,Urine Negative (Negative); Color,Urine Light Yellow; Glucose,Urine (UA) Negative (Negative); Ketones,Urine 2+ (Negative); Leukocyte Esterase,Urine Negative (Negative); Nitrite,Urine Negative (Negative); Protein,Urine Negative (Negative); Specific Gravity,Urine 1.006 (1.001-1.035); Urobilinogen,Urine <2.0 mg/dL (<2.0)
[2020-11-10] MEDS: amLODIPine 5 MG TAB PO SCH (20:17)
[2020-11-10] MEDS: ATORVASTATIN 10 MG TAB PO SCH (20:17)
--- NOTE | 2020-11-10 23:00 | CONS ---
CONSULTATION DATE OF SERVICE: 11/10/2020 REASON FOR CONSULTATION: COVID-19 infection. HISTORY OF PRESENT ILLNESS: The patient is a 75 -year-old female presenting to the ER with chief complaints of nausea, vomiting, diarrhea. The patient's symptoms had been going on for about 4 days before presentation to the hospital. The patient's main symptom remains diarrhea with multiple loose stools; no blood or mucus in the stool. The patient denies significant abdominal pain; did have some nausea but no vomiting. The patient denies having any headache. No chest pain or shortness of breath. Minimal cough but no sputum production. The patient did have some low-grade fever but mentioned she did not take her temperature. On presentation to the hospital the patient did have a low- grade fever of 99.6 degrees Fahrenheit. The patient is currently saturating 95% on room air. No tachycardia. The patient did have a negative UA and did have leukopenia as well as lymphopenia. Kidney function was normal. AST mildly elevated at 42. CRP is normal. was normal. Troponins are elevated. Alfaro PCR came back positive. The patient did have a chest x-ray showing no acute process. The patient was admitted to the hospital. The patient has been started on Decadron. Infectious Disease was consulted for further management of antibiotic therapy. REVIEW OF SYSTEMS: Positive points have been mentioned in the HPI. Rest of the systems are negative. PAST MEDICAL HISTORY: Hypertension, hyperlipidemia, osteoarthritis, pneumonia. PAST SURGICAL HISTORY: Appendectomy, back surgery, hysterectomy, bilateral cataract surgery, breast biopsy. SOCIAL HISTORY: The patient denies smoking, drinking or drug use. FAMILY HISTORY: Mother with history of coronary artery disease and diabetes. Father with history of coronary artery disease. ALLERGIES: TETANUS TOXOID and AZITHROMYCIN. MEDICATIONS: The patient is currently on Tylenol, Norvasc, Lipitor, Decadron, Cozaar, Lopressor, morphine sulfate, Narcan. PHYSICAL EXAMINATION: GENERAL: A pleasant patient in no distress. VITAL SIGNS: Blood pressure 120/70 with a pulse of 70, temperature 99.2. She is 94% on room air. General description is an elderly female lying in bed in no distress. No tachypnea or accessory muscle of respiration use. HEENT: Examination shows no pallor or scleral icterus. Oral mucous membrane is dry. No pharyngeal erythema or thrush. NECK: Trachea is central. No thyromegaly. LUNGS: Unlabored breathing. Clear to auscultation anteriorly. HEART: S1, S2. Regular rate and rhythm. ABDOMEN: Soft. No tenderness. EXTREMITIES: No edema of the feet. SKIN EXAMINATION: No rash or mass palpable. Neurologically the patient is awake, alert, oriented x3. Mood and affect normal. LABS: Alfaro PCR is positive. Stool for C difficile is negative. White count 3.7, lymphocyte count 0.5. CRP was less than 5. Creatinine 0.69. Urine was negative. Chest x-ray was negative for any acute infiltrate. DIAGNOSTIC IMPRESSION AND PLAN: Patient presented to hospital predominantly with GI symptoms, nausea, vomiting and extensive diarrhea, very minimal respiratory symptoms secondary to acute COVID-19 infection with predominant GI symptoms in this patient who does not have significant hypoxemia; currently 95% on room air. Chest x-ray was negative for any infiltrate. PLAN: 1. We will start the patient on Lovenox, zinc sulfate, ascorbic acid. 2. We will add Questran for symptomatic relief of her diarrhea. 3. We will follow clinical condition and further adjust medication if needed. Thank you for this consultation. Will follow this patient along with you. MMODL / IJN: [id number] /
[2020-11-10] MEDS: ENOXAPARIN 40 MG/0.4 ML SYRINGE SQ SCH (23:26)
[2020-11-11] MEDS: SODIUM CHLORIDE 5% OPHTH DROPS 15 ML BTL LEFT EYE SCH ×6 (03:36→23:59)
[2020-11-11] MEDS: SODIUM CHLORIDE 5% OPHTH DROPS 15 ML BTL RIGHT EYE SCH ×4 (03:36→21:58)
[2020-11-11] MEDS: SODIUM CHLORIDE 0.9% 1,000 ML IV SCH (03:38)
[2020-11-11 07:24] LABS: ALT 31 U/L (4-34); AST 40 U/L (14-36); African American GFR (CKD) >90 (>60 ml/min/1.73 sqM); Albumin 3.7 g/dL (3.5-5.0); Alkaline Phosphatase 42 U/L (38-126); Anion Gap 9 mmol/L; Blood Urea Nitrogen 18 mg/dL (7-17); C Reactive Protein 6.7 mg/L (<10.0); Calcium 8.5 mg/dL (8.4-10.2); Carbon Dioxide 25 mmol/L (22-30); Chloride 108 mmol/L (98-107); Glucose 124 mg/dL (74-99); LDH 637 U/L (313-618); Non-African American GFR(CKD) >90 (>60 ml/min/1.73 sqM); Potassium 4.3 mmol/L (3.5-5.1); Sodium 142 mmol/L (137-145); Total Bilirubin 0.5 mg/dL (0.2-1.3); Total Protein 6.1 g/dL (6.3-8.2)
[2020-11-11] MEDS: ASCORBIC ACID 500 MG TAB PO SCH (10:52)
[2020-11-11] MEDS: METOPROLOL TARTRATE 25 MG TAB PO SCH (10:52)
[2020-11-11] MEDS: LOSARTAN 50 MG TAB PO SCH (10:52)
[2020-11-11] MEDS: ZINC SULFATE 220 MG CAP PO SCH (10:52)
[2020-11-11] MEDS: ENOXAPARIN 40 MG/0.4 ML SYRINGE SQ SCH (10:52)
[2020-11-11] MEDS: DEXAMETHASONE SOD PHOSPHATE 10 MG/ML 1 ML VIAL IV SCH ×2 (10:52→14:04)
[2020-11-11] MEDS: CHOLESTYRAMINE (WITH SUGAR) 4 GM PACKET PO SCH ×2 (11:04→16:58)
--- NOTE | 2020-11-11 11:08 | P.CRDCN ---
History of Present Illness Consult date: 11/11/20 History of present illness: This is a 75-year-old female with history of hypertension and abnormal EKG which is chronic, is admitted to the hospital mainly with complaints of nausea, diarrhea and GI symptoms and COVID symptoms. We're asked to see the patient because of abnormal troponin and also EKG. Patient did not express any chest pain. Most of the information is gathered from patient chart and data warehouse consultant notes. I did not personally examine the patient because of the COVID infection to limit the exposure. Patient was seen from a distance and doesn't appear to be in acute distress. Patient had a cardiac catheterization because of abnormal EKG in the recent past and was not found to have an obstructive coronary artery disease. Her troponins are mildly elevated but the pattern is not consistent with acute myocardial injury pattern. We'll get an echocardiogram and if the echo doesn't show any segmental wall motion defects and if patient remains witho ut any chest pain, no further cardiac evaluation is suggested. Continue management as outlined by infectious disease. We'll follow as needed Review of Systems As per the chart Past Medical History Past Medical History: Eye Disorder, Hyperlipidemia, Osteoarthritis (OA), Pneumonia Additional Past Medical History / Comment(s): PALPATATIONS. 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 cataract surgery 2004, breast biopsy Past Anesthesia/Blood Transfusion Reactions: No Reported Reaction Past Psychological History: No Psychological Hx Reported Smoking Status: Never smoker Past Alcohol Use History: None Reported Past Drug Use History: None Reported - Past Family History Mother Family Medical History: Coronary Artery Disease (CAD), Diabetes Mellitus Father Family Medical History: Coronary Artery Disease (CAD) Sister(s) Family Medical History: No Reported History Brother(s) Family Medical History: No Reported History Son(s) Family Medical History: Coronary Artery Disease (CAD), CVA/TIA Daughter(s) Family Medical History: Cancer Additional Family Medical History / Comment(s): colon cancer Medications and Allergies Home Medications Medication Instructions Recorded Confirmed Type Atorvastatin [Lipitor] 10 mg PO HS 02/24/18 11/10/20 History Losartan [Cozaar] 50 mg PO DAILY 02/24/18 11/10/20 History Sodium Chloride 5% Ophth Soln 1 drops LEFT EYE Q4H 02/24/18 11/10/20 History [Rodney 128] Sodium Chloride 5% Ophth Soln 1 drops RIGHT EYE Q6H 02/24/18 11/10/20 History [Rodney 128] Azithromycin [Zithromax Z-pack (6 See Taper PO DAILY 11/10/20 11/10/20 History tabs)] Metoprolol Tartrate [Lopressor] 25 mg PO DAILY 11/10/20 11/10/20 History amLODIPine [Norvasc] 5 mg PO HS 11/10/20 11/10/20 History Allergies Allergy/AdvReac Type Severity Reaction Status Date / Time Tetanus Vaccines and Toxoid Allergy Rash/Hives. Verified 11/10/20 14:00 [Tetanus Vaccines & Toxoid] NAUSEA/VOMITING azithromycin AdvReac Nausea/"AWFUL Verified 11/10/20 14:00 [From Zithromax Z-Juan A] TASTE IN MOUTH" Physical Exam Vitals: Vital Signs Temp Pulse Pulse Resp BP BP Pulse Ox 11/11/20 04:00 98.1 F 62 17 134/74 95 11/11/20 01:31 18 11/10/20 23:36 98.3 F 73 18 134/68 97 11/10/20 20:00 98.3 F 92 18 122/68 95 11/10/20 16:20 78 18 11/10/20 15:31 98.8 F 79 20 135/87 95 11/10/20 14:59 99.2 F 78 18 125/70 94 L 11/10/20 14:07 99.6 F 85 20 128/74 92 L 11/10/20 12:13 98.8 F 93 18 129/79 95 Intake and Output 11/10/20 11/11/20 11/11/20 22:59 06:59 14:59 Intake Total 250 Balance 250 Intake: IV 10 Invasive Line 2 10 Oral 240 Other: Voiding Method Toilet Toilet # Voids 1 1 # Bowel Movements 1 2 Weight 59.6 kg Patient is not personally examined. Information is gathered from the chart Results 11/10/20 12:33 11/11/20 06:25 Cardiac Enzymes 11/10/20 11/10/20 11/10/20 Range/Units 12:33 12:33 17:03 AST 42 H (14-36) U/L Lactate Dehydrogenase 559 (313-618) U/L Troponin I 0.037 H* (0.000-0.034) ng/mL 11/10/20 11/10/20 11/11/20 Range/Units 17:03 19:16 06:25 AST 40 H (14-36) U/L Lactate Dehydrogenase 637 H (313-618) U/L Troponin I 0.044 H* 0.036 H* (0.000-0.034) ng/mL CBC 11/10/20 Range/Units 12:33 WBC 3.7 L (3.8-10.6) k/uL RBC 4.59 (3.80-5.40) m/uL Hgb 15.1 (11.4-16.0) gm/dL Hct 42.8 (34.0-46.0) % Plt Count 149 L (150-450) k/uL Comprehensive Metabolic Panel 11/10/20 11/11/20 Range/Units 12:33 06:25 Sodium 137 142 (137-145) mmol/L Potassium 4.2 4.3 (3.5-5.1) mmol/L Chloride 101 108 H (98-107) mmol/L Carbon Dioxide 24 25 (22-30) mmol/L BUN 17 18 H (7-17) mg/dL Creatinine 0.69 0.56 (0.52-1.04) mg/dL Glucose 93 124 H (74-99) mg/dL Calcium 8.9 8.5 (8.4-10.2) mg/dL AST 42 H 40 H (14-36) U/L ALT 30 31 (4-34) U/L Alkaline Phosphatase 47 42 (38-126) U/L Total Protein 6.6 6.1 L (6.3-8.2) g/dL Albumin 4.1 3.7 (3.5-5.0) g/dL Current Medications Generic Name Dose Route Start Last Admin Trade Name Freq PRN Reason Stop Dose Admin Acetaminophen 650 mg 11/10/20 14:37 Acetaminophen Tab 325 Mg Tab PO Q6HR PRN Mild Pain or Fever > 100.5 Amlodipine Besylate 5 mg 11/10/20 21:00 11/10/20 20:17 Amlodipine 5 Mg Tab PO 5 mg HS JAIDA Administration Ascorbic Acid 1,000 mg 11/11/20 09:00 11/11/20 10:52 Ascorbic Acid 500 Mg Tab PO 1,000 mg DAILY JAIDA Administration Atorvastatin Calcium 10 mg 11/10/20 21:00 11/10/20 20:17 Atorvastatin 10 Mg Tab PO 10 mg HS JAIDA Administration Cholestyramine Resin 4 gm 11/11/20 10:00 Cholestyramine (With Sugar) 4 Gm Packet PO BID@1000,1800 JAIDA Dexamethasone Sodium Phosphate 6 mg 11/10/20 14:45 11/11/20 10:52 Dexamethasone Sod Phosphate 10 Mg/Ml 1 Ml Vial IV 6 mg DAILY JAIDA Administration Enoxaparin Sodium 40 mg 11/10/20 22:30 11/11/20 10:52 Enoxaparin 40 Mg/0.4 Ml Syringe SQ 40 mg DAILY JAIDA Administration Sodium Chloride 1,000 mls @ 75 mls/hr 11/10/20 14:45 11/11/20 03:38 Saline 0.9% IV 75 mls/hr .[id number] JAIDA Administration Losartan Potassium 50 mg 11/11/20 09:00 11/11/20 10:52 Losartan 50 Mg Tab PO 50 mg DAILY JAIDA Administration Metoprolol Tartrate 25 mg 11/11/20 09:00 11/11/20 10:52 Metoprolol Tartrate 25 Mg Tab PO 25 mg DAILY JAIDA Administration Morphine Sulfate 2 mg 11/10/20 14:37 Morphine Sulfate 2 Mg/Ml Syringe IV Q4HR PRN Severe Pain Naloxone HCl 0.2 mg 11/10/20 14:37 Naloxone 0.4 Mg/Ml 1 Ml Vial IV Q2M PRN Opioid Reversal Sodium Chloride 1 drops 11/10/20 15:00 11/11/20 10:53 Sodium Chloride 5% Ophth Drops 15 Ml Btl LEFT EYE 1 drops Q4H JAIDA Administration Sodium Chloride 1 drops 11/10/20 15:00 11/11/20 10:54 Sodium Chloride 5% Ophth Drops 15 Ml Btl RIGHT EYE 1 drops Q6H JAIDA Administration Zinc Sulfate 220 mg 11/11/20 09:00 11/11/20 10:52 Zinc Sulfate 220 Mg Cap PO 220 mg DAILY JAIDA Administration Intake and Output 11/10/20 11/11/20 11/11/20 22:59 06:59 14:59 Intake Total 250 Balance 250 Intake: IV 10 Invasive Line 2 10 Oral 240 Other: Voiding Method Toilet Toilet # Voids 1 1 # Bowel Movements 1 2 Weight 59.6 kg 11/10/20 12:33 11/11/20 06:25 EKG Interpretations (text) Sinus rhythm with a diffuse T-wave changes in anterolateral leads. These are chronic without any acute change Assessment and Plan (1) COVID-19 Current Visit: Yes Status: Acute Code(s): U07.1 - COVID-19 SNOMED Code(s): 282228984 (2) Elevated troponin Current Visit: Yes Status: Acute Code(s): R77.8 - OTHER SPECIFIED ABNORMALITIES OF PLASMA PROTEINS SNOMED Code(s): 820830853 (3) Nausea, vomiting, and diarrhea Current Visit: Yes Status: Acute Code(s): R11.2 - NAUSEA WITH VOMITING, UNSPECIFIED; R19.7 - DIARRHEA, UNSPECIFIED SNOMED Code(s): 4516933 Plan: Patient doesn't have any symptoms of angina or chest pain. EKG changes are chronic. Troponin elevations appear to be nonspecific and could be related to Covid. Patient had a cardiac catheterization was not performed having coronary artery disease in the recent past. We'll get an echocardiogram to rule out any wall motion abnormal disease. If echo is normal, no further cardiac evaluation at this time.
--- NOTE | 2020-11-11 13:00 | ECHOF ---
Referral Reason:abnormal troponin MEASUREMENTS -------- HEIGHT: 154.9 cm WEIGHT: 59.4 kg BP: RVIDd: 2.0 cm (< 3.3) IVSd: 1.6 cm (0.6 - 1.1) LVIDd: 3.1 cm (3.9 - 5.3) LVPWd: 1.6 cm (0.6 - 1.1) IVSs: 2.2 cm LVIDs: 2.1 cm LVPWs: 1.9 cm Ao Diam: 3.0 cm (2.0 - 3.7) AV Cusp: 2.1 cm (1.5 - 2.6) LA Diam: 2.5 cm (2.7 - 3.8) MV EXCURSION: 16.659 mm (> 18.000) MV EF SLOPE: 49 mm/s (70 - 150) EPSS: 0.5 cm MV E Boris: 0.87 m/s MV DecT: 200 ms MV A Boris: 0.95 m/s MV E/A Ratio: 0.92 RAP: 5.00 mmHg RVSP: 22.84 mmHg FINDINGS -------- Sinus rhythm. This was a technically difficult study with suboptimal views. The cavity size is decreased. There is moderate concentric left ventricular hypertrophy. Overall left ventricular systolic function is mild-moderately impaired with, an EF between 40 - 45 %. Lutts Hypokinesis. The right ventricle is normal in size. The left atrial size is normal. The right atrial size is normal. Lumason used The aortic valve is trileaflet, and appears structurally normal. No aortic stenosis or regurgitation. The mitral valve is normal. There is trace mitral regurgitation. The tricuspid valve appears structurally normal. Mild tricuspid regurgitation present. Right vent ricular systolic pressure is normal at < 35 mmHg. There is no pulmonic regurgitation present. The aortic root size is normal. Normal inferior vena cava with normal inspiratory collapse consistent with estimated right atrial pre ssure of 5 mmHg. There is no pericardial effusion. CONCLUSIONS -------- 1. This was a technically difficult study with suboptimal views. 2. There is moderate concentric left ventricular hypertrophy. 3. Overall left ventricular systolic function is mild-moderately impaired with, an EF between 40 - 45 %. 4. Lutts Hypokinesis. 5. The left atrial size is normal. 6. The aortic valve is trileaflet, and appears structurally normal. No aortic stenosis or regurgitati on. 7. There is trace mitral regurgitation. 8. Mild tricuspid regurgitation present. 9. There is no pericardial effusion. ANTIQUE REFINISHER: Francy Osorio RDCS
[2020-11-11] MEDS ORDERED: LACTATED RINGERS 1,000 ML IV SCH (13:30)
--- NOTE | 2020-11-11 16:23 | PN ---
PROGRESS NOTE DATE OF SERVICE: 11/11/2020 REASON FOR FOLLOWUP: COVID-19 infection. INTERVAL HISTORY: The patient is currently afebrile. The patient is breathing slightly comfortably. Denies having any chest pain or shortness of breath significant diarrhea with multiple loose stools. No blood or mucus in the stool. PHYSICAL EXAMINATION: Blood pressure 122/61 with a pulse of 59, temperature 97.8. She is 94% on room air. General description is an elderly female lying in bed in no distress. RESPIRATORY SYSTEM: Unlabored breathing with decreased intensity of breath sounds. No wheeze. HEART: S1, S2. Regular rate and rhythm. ABDOMEN: Soft. No tenderness. LABS: BUN of 14, creatinine 0.56. Procalcitonin is normal. CRP is not elevated. DIAGNOSTIC IMPRESSION AND PLAN: Patient with acute COVID-19 infection with predominantly GI symptoms. Patient at this time is covered with dexamethasone, Lovenox, zinc continue along with Questran for symptomatic relief and monitor clinical course closely. MMODL / IJN: [id number] /
--- NOTE | 2020-11-11 21:09 | P.HPIM ---
History of Present Illness H&P Date: 11/11/20 Chief Complaint: Cough and diarrhea History of presenting complaint: This is a pleasant 75-year-old patient, Dr. Griffith. Chronic stable medical conditions include hyperlipidemia, osteophyte nephritis, osteoporosis, Fuchs dystrophy. Patient now presents with having bothersome cough a few days. Anyway from 12 weeks. Has been having diarrhea for last 5 days. Anyway 2-6 bowel movements a day. Somewhat mushy. No blood in bowel pain. No significant shortness of breath. No dizziness. Decreased appetite. Has had fever and chills. No loss of smell or taste. She is totally tired and rundown. Patient did test positive for COVID 19. Pulse ox is good. Patient apparently had cardiac catheterizations recent past with no significant disease found. Review of systems: GEN.: Tired EYES: None HEENT: None NECK: None RESPIRATORY: Significant cough CARDIOVASCULAR: None GASTROINTESTINAL: Diarrhea GENITOURINARY: None MUSCULOSKELETAL: None LYMPHATICS: None HEMATOLOGICAL: None PSYCHIATRY: None NEUROLOGICAL: None Past medical history to include: Hyperactive hyperlipidemia, osteophyte arthritis, osteoporosis, Fuchs dystrophy Social history: Lives with her son. No history of smoking or alcohol Physical examination: VITAL SIGNS: 98.8, 33, 18, 129/79, 95% on room air GENERAL: BMI 24.8, reclining in bed, bit tired. EYES: Pupils equal. Conjunctiva normal. HEENT: External appearance of nose and ears normal, oral cavity grossly normal. NECK: JVD not raised; masses not palpable. HEART: First and second heart sounds are normal; no edema. LUNGS: Respiratory rate increased clear to auscultation. ABDOMEN: Soft, nontender, liver spleen not palpable, no masses palpable. PSYCH: Alert and oriented x3; mood and affect anxiousl. NEUROLOGICAL: Cranial nerves grossly intact; no facial asymmetry, power and sensation grossly intact. LYMPHATICS: No lymph nodes palpable in the axilla and neck INVESTIGATIONS, reviewed in the clinical context: WBC 3.7 hemoglobin 15.1 platelets 149 lymphocytes this in 0.5 potassium 4.2 creatinine 0.69 Troponin I 0.037, 0.044, 0.036 Pro-calcitonin 0.05, CRP less than 5 UA-ketones 2+ Coronavirus [PCR]-detected EKG tracing personally reviewed by me-flipped T waves in anterolateral leads, with LVH, sinus rhythm 2-D echocardiogram-EF 40-45%, moderate concentric LVH Chest x-ray film personally reviewed by me-cardiomegaly no obvious infiltrate Assessment and plan: -Acute COVID 19 infection predominantly manifesting as cough and diarrhea. Patient is maintaining good pulse oximeter and no obvious infiltrates on the x- ray. Patient has been placed on Decadron and subcu Lovenox. -Acute myocarditis secondary to COVID 19 infection. Manifesting as blip and troponins and inverted T waves. To be managed conservatively. Patient's previously had a cardiac catheterization negative for disease. 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 We will let ERIN inhibitor and Aldactone -Hyperlipidemia, continue with Lipitor -Essential hypertension continue with Lopressor and Cozaar and Norvasc -Primary osteoarthritis, use Tylenol when necessary Consultation made to cardiology and ID. Care was discussed with the patient. Given the complexity and severity of patient's condition expect the patient to be in the hospital at least for 2 overnights Past Medical History Past Medical History: Eye Disorder, Hyperlipidemia, Osteoarthritis (OA), Pneumonia Additional Past Medical History / Comment(s): PALPATATIONS. 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 cataract surgery 2004, breast biopsy Past Anesthesia/Blood Transfusion Reactions: No Reported Reaction Past Psychological History: No Psychological Hx Reported Smoking Status: Never smoker Past Alcohol Use History: None Reported Past Drug Use History: None Reported - Past Family History Mother Family Medical History: Coronary Artery Disease (CAD), Diabetes Mellitus Father Family Medical History: Coronary Artery Disease (CAD) Sister(s) Family Medical History: No Reported History Brother(s) Family Medical History: No Reported History Son(s) Family Medical History: Coronary Artery Disease (CAD), CVA/TIA Daughter(s) Family Medical History: Cancer Additional Family Medical History / Comment(s): colon cancer Medications and Allergies Home Medications Medication Instructions Recorded Confirmed Type Atorvastatin [Lipitor] 10 mg PO HS 02/24/18 11/10/20 History Losartan [Cozaar] 50 mg PO DAILY 02/24/18 11/10/20 History Sodium Chloride 5% Ophth Soln 1 drops LEFT EYE Q4H 02/24/18 11/10/20 History [Rodney 128] Sodium Chloride 5% Ophth Soln 1 drops RIGHT EYE Q6H 02/24/18 11/10/20 History [Rodney 128] Azithromycin [Zithromax Z-pack (6 See Taper PO DAILY 11/10/20 11/10/20 History tabs)] Metoprolol Tartrate [Lopressor] 25 mg PO DAILY 11/10/20 11/10/20 History amLODIPine [Norvasc] 5 mg PO HS 11/10/20 11/10/20 History Allergies Allergy/AdvReac Type Severity Reaction Status Date / Time Tetanus Vaccines and Toxoid Allergy Rash/Hives. Verified 11/10/20 14:00 [Tetanus Vaccines & Toxoid] NAUSEA/VOMITING azithromycin AdvReac Nausea/"AWFUL Verified 11/10/20 14:00 [From Zithromax Z-Juan A] TASTE IN MOUTH" Physical Exam Vitals: Vital Signs Temp Pulse Pulse Resp BP BP Pulse Ox 11/11/20 04:00 98.1 F 62 17 134/74 95 11/11/20 01:31 18 11/10/20 23:36 98.3 F 73 18 134/68 97 11/10/20 20:00 98.3 F 92 18 122/68 95 11/10/20 16:20 78 18 11/10/20 15:31 98.8 F 79 20 135/87 95 11/10/20 14:59 99.2 F 78 18 125/70 94 L 11/10/20 14:07 99.6 F 85 20 128/74 92 L 11/10/20 12:13 98.8 F 93 18 129/79 95 Intake and Output 11/10/20 11/11/20 11/11/20 22:59 06:59 14:59 Intake Total 250 Balance 250 Intake: IV 10 Invasive Line 2 10 Oral 240 Other: Voiding Method Toilet Toilet # Voids 1 1 # Bowel Movements 1 2 Weight 59.6 kg Results CBC & Chem 7: 11/10/20 12:33 11/11/20 06:25 Labs: Abnormal Lab Results - Last 24 Hours (Table) 11/10/20 11/10/20 11/10/20 Range/Units 12:33 12:33 12:33 WBC 3.7 L (3.8-10.6) k/uL Plt Count 149 L (150-450) k/uL Lymphocytes # 0.5 L (1.0-4.8) k/uL Chloride (98-107) mmol/L BUN (7-17) mg/dL Glucose (74-99) mg/dL Ferritin (10.0-291.0) ng/mL AST 42 H (14-36) U/L Lactate Dehydrogenase (313-618) U/L Troponin I 0.037 H* (0.000-0.034) ng/mL Total Protein (6.3-8.2) g/dL Urine Ketones (Negative) Coronavirus (PCR) (Not Detectd) 11/10/20 11/10/20 11/10/20 Range/Units 12:45 14:22 17:03 WBC (3.8-10.6) k/uL Plt Count (150-450) k/uL Lymphocytes # (1.0-4.8) k/uL Chloride (98-107) mmol/L BUN (7-17) mg/dL Glucose (74-99) mg/dL Ferritin 395.0 H (10.0-291.0) ng/mL AST (14-36) U/L Lactate Dehydrogenase (313-618) U/L Troponin I (0.000-0.034) ng/mL Total Protein (6.3-8.2) g/dL Urine Ketones 2+ H (Negative) Coronavirus (PCR) Detected A (Not Detectd) 11/10/20 11/10/20 11/11/20 Range/Units 17:03 19:16 06:25 WBC (3.8-10.6) k/uL Plt Count (150-450) k/uL Lymphocytes # (1.0-4.8) k/uL Chloride 108 H (98-107) mmol/L BUN 18 H (7-17) mg/dL Glucose 124 H (74-99) mg/dL Ferritin (10.0-291.0) ng/mL AST 40 H (14-36) U/L Lactate Dehydrogenase 637 H (313-618) U/L Troponin I 0.044 H* 0.036 H* (0.000-0.034) ng/mL Total Protein 6.1 L (6.3-8.2) g/dL Urine Ketones (Negative) Coronavirus (PCR) (Not Detectd) Thrombosis Risk Factor Assmnt - Choose All That Apply Each Factor Represents 1 point: Obesity (BMI >25) Each Risk Factor Represents 2 Points: Age 61-74 years Each Risk Factor Represents 3 Points: Family history of DVT/PE Thrombosis Risk Factor Assessment Total Risk Factor Score: 6 Thrombosis Risk Factor Assessment Level: High Risk
[2020-11-11] MEDS: ATORVASTATIN 10 MG TAB PO SCH (21:57)
[2020-11-11] MEDS: amLODIPine 5 MG TAB PO SCH (21:57)
[2020-11-12] MEDS: SODIUM CHLORIDE 5% OPHTH DROPS 15 ML BTL LEFT EYE SCH ×5 (03:01→20:55)
[2020-11-12] MEDS: SODIUM CHLORIDE 5% OPHTH DROPS 15 ML BTL RIGHT EYE SCH ×4 (03:01→20:56)
[2020-11-12] MEDS: SPIRONOLACTONE 25 MG TAB PO SCH (08:56)
[2020-11-12] MEDS: CHOLESTYRAMINE (WITH SUGAR) 4 GM PACKET PO SCH ×2 (08:56→15:27)
[2020-11-12] MEDS: ENOXAPARIN 40 MG/0.4 ML SYRINGE SQ SCH (08:56)
[2020-11-12] MEDS: METOPROLOL TARTRATE 25 MG TAB PO SCH (08:56)
[2020-11-12] MEDS: LOSARTAN 50 MG TAB PO SCH (08:56)
[2020-11-12] MEDS: ZINC SULFATE 220 MG CAP PO SCH (08:56)
[2020-11-12] MEDS: ASCORBIC ACID 500 MG TAB PO SCH (08:56)
--- NOTE | 2020-11-12 12:27 | P.PN ---
Subjective Progress Note Date: 11/12/20 History of present illness: This is a 75-year-old female with history of hypertension and abnormal EKG which is chronic, is admitted to the hospital mainly with complaints of nausea, diarrhea and GI symptoms and COVID symptoms. We're asked to see the patient because of abnormal troponin and also EKG. Patient did not express any chest pain. Most of the information is gathered from patient chart and financial sales consultant notes. I did not personally examine the patient because of the COVID infection to limit the exposure. Patient was seen from a distance and doesn't appear to be in acute distress. Patient had a cardiac catheterization because of abnormal EKG in the recent past and was not found to have an obstructive coronary artery disease. Her troponins are mildly elevated but the pattern is not consistent with acute myocardial injury pattern. We'll get an echocardiogram and if the echo doesn't show any segmental wall motion defects and if patient remains without any chest pain, no further cardiac evaluation is suggested. Continue management as outlined by infectious disease. We'll follow as needed 11/12: Patient states that she still has occasional cough. She also has diarrhea. She denies having chest pain or shortness of breath. She does complain of pressure in her back. Echocardiogram revealed EF of 40-45% with moderate concentric left ventricular hypertrophy, trace mitral regurgitation, mild tricuspid regurgitation. Patient's echocardiogram was done in 2018 revealed normal ejection fraction. Physical examination: Patient is not personally examined. Information is gathered from the chart and questioning the patient Assessment: Sinus rhythm with diffuse T wave changes in anterior lateral leads, chronic COVID-19 Abnormal ejection fraction Plan: Repeat limited echocardiogram on Saturday Further recommendations to follow based upon clinical course Nurse practitioner note has been reviewed, I agree with documented findings and plan of care. Patient was seen and examined. Objective - Vital Signs Vital signs: Vital Signs Temp 98.2 F 11/12/20 08:00 Pulse 70 11/12/20 08:00 Resp 16 11/12/20 08:00 BP 122/63 11/12/20 08:00 Pulse Ox 93 L 11/12/20 08:00 Intake & Output 11/11/20 11/12/20 11/12/20 18:59 06:59 18:59 Intake Total 365 Balance 365 Weight 63.5 kg Intake: Oral 365 Other: Voiding Method Toilet # Voids 2 2 - Labs CBC & Chem 7: 11/10/20 12:33 11/11/20 06:25
[2020-11-12] MEDS: ATORVASTATIN 10 MG TAB PO SCH (20:55)
[2020-11-12] MEDS: amLODIPine 5 MG TAB PO SCH (20:55)
--- NOTE | 2020-11-12 22:29 | PN ---
PROGRESS NOTE DATE OF SERVICE: 11/12/2020 REASON FOR FOLLOWUP: COVID-19 infection. INTERVAL HISTORY: The patient is currently afebrile. The patient is feeling better. Breathing comfortably. The patient's diarrhea has resolved. Did not have any bowel movement today. No chest pain. No shortness of breath. Occasional cough. No nausea, vomiting. PHYSICAL EXAMINATION: Blood pressure 123/77, pulse of 73, temperature 98.1. General description: The patient is an elderly in an elderly female lying in bed in no distress. Respiratory System: Unlabored breathing. Clear to auscultation anteriorly. HEART S1, S2. Regular rate and ribbon. . ABDOMEN: Soft, no tenderness. LABS: BUN of 18, creatinine 0.56. DIAGNOSTIC IMPRESSION AND PLAN: Patient with acute COVID-19 infection, predominantly has shown clinical response to the current symptomatic treatment including Lanoxin, zinc and Questran to continue. Has been advised to not take cultures if no bowel movement for 24 hours and continue supportive care. MMODL / IJN: [id number] /
--- NOTE | 2020-11-12 23:41 | P.PN ---
Progress Note - Text Progress Note Date: 11/12/20 Chief Complaint: Cough and diarrhea History of presenting complaint: This is a pleasant 75-year-old patient, Dr. Griffith. Chronic stable medical conditions include hyperlipidemia, osteophyte nephritis, osteoporosis, Fuchs dystrophy. Patient now presents with having bothersome cough a few days. Anyway from 12 weeks. Has been having diarrhea for last 5 days. Anyway 2-6 bowel movements a day. Somewhat mushy. No blood in bowel pain. No significant shortness of breath. No dizziness. Decreased appetite. Has had fever and chills. No loss of smell or taste. She is totally tired and rundown. Patient did test positive for COVID 19. Pulse ox is good. Patient apparently had cardiac catheterizations recent past with no significant disease found. Admitted with COVID 19 infection with good pulse ox. Placed on Decadron and subcu Lovenox. Also felt to have COVID 19 myocarditis. Low EF. Placed on ERIN inhibitor and Aldactone. Today-diarrhea is resolved. Oral intake gradually improving. Tired. No chest pain Review of systems: Was done for constitutional, cardiovascular, GI, pulmonary. relevant finding as above Active Medications Acetaminophen (Acetaminophen Tab 325 Mg Tab) 650 mg PO Q6HR PRN PRN Reason: Mild Pain or Fever > 100.5 Amlodipine Besylate (Amlodipine 5 Mg Tab) 5 mg PO [facility] Last Admin: 11/12/20 20:55 Dose: 5 mg Documented by: Ascorbic Acid (Ascorbic Acid 500 Mg Tab) 1,000 mg PO DAILY [facility] Last Admin: 11/12/20 08:56 Dose: 1,000 mg Documented by: Atorvastatin Calcium (Atorvastatin 10 Mg Tab) 10 mg PO [facility] Last Admin: 11/12/20 20:55 Dose: 10 mg Documented by: Cholestyramine Resin (Cholestyramine (With Sugar) 4 Gm Packet) 4 gm PO BID@1000,1800 [facility] Last Admin: 11/12/20 15:27 Dose: 4 gm Documented by: Dexamethasone Sodium Phosphate (Dexamethasone Sod Phosphate 10 Mg/Ml 1 Ml Vial) 6 mg IV DAILY [facility] Last Admin: 11/11/20 14:04 Dose: 6 mg Documented by: Enoxaparin Sodium (Enoxaparin 40 Mg/0.4 Ml Syringe) 40 mg SQ DAILY [facility] Last Admin: 11/12/20 08:56 Dose: 40 mg Documented by: Losartan Potassium (Losartan 50 Mg Tab) 50 mg PO DAILY [facility] Last Admin: 11/12/20 08:56 Dose: 50 mg Documented by: Metoprolol Tartrate (Metoprolol Tartrate 25 Mg Tab) 25 mg PO DAILY [facility] Last Admin: 11/12/20 08:56 Dose: 25 mg Documented by: Naloxone HCl (Naloxone 0.4 Mg/Ml 1 Ml Vial) 0.2 mg IV Q2M PRN PRN Reason: Opioid Reversal Sodium Chloride (Sodium Chloride 5% Ophth Drops 15 Ml Btl) 1 drops LEFT EYE Q4H [facility] Last Admin: 11/12/20 20:55 Dose: 1 drops Documented by: Sodium Chloride (Sodium Chloride 5% Ophth Drops 15 Ml Btl) 1 drops RIGHT EYE Q6H [facility] Last Admin: 11/12/20 20:56 Dose: 1 drops Documented by: Spironolactone (Spironolactone 25 Mg Tab) 12.5 mg PO DAILY [facility] Last Admin: 11/12/20 08:56 Dose: 12.5 mg Documented by: Zinc Sulfate (Zinc Sulfate 220 Mg Cap) 220 mg PO DAILY [facility] Last Admin: 11/12/20 08:56 Dose: 220 mg Documented by: Past medical history to include: Hyperactive hyperlipidemia, osteophyte arthritis, osteoporosis, Fuchs dystrophy Social history: Lives with her son. No history of smoking or alcohol Physical examination: VITAL SIGNS: 98.1, 63, 18, 1 23 x 77, 97% on room air GENERAL: Declining in bed, looking better EYES: Pupils equal. Conjunctiva normal. HEENT: External appearance of nose and ears normal, oral cavity grossly normal. NECK: JVD not raised; masses not palpable. HEART: First and second heart sounds are normal; no edema. LUNGS: Respiratory rate increased clear to auscultation. ABDOMEN: Soft, nontender, liver spleen not palpable, no masses palpable. PSYCH: Alert and oriented x3; mood and affect anxiousl. INVESTIGATIONS, reviewed in the clinical context: WBC 3.7 hemoglobin 15.1 platelets 149 lymphocytes this in 0.5 potassium 4.2 creatinine 0.69 Troponin I 0.037, 0.044, 0.036 Pro-calcitonin 0.05, CRP less than 5 UA-ketones 2+ Coronavirus [PCR]-detected EKG tracing personally reviewed by me-flipped T waves in anterolateral leads, with LVH, sinus rhythm 2-D echocardiogram-EF 40-45%, moderate concentric LVH Chest x-ray film personally reviewed by me-cardiomegaly no obvious infiltrate Assessment and plan: -Acute COVID 19 infection predominantly manifesting as cough and diarrhea. Patient is maintaining good pulse oximeter and no obvious infiltrates on the x- ray. Patient has been placed on Decadron and subcu Lovenox. -Acute myocarditis secondary to COVID 19 infection. Manifesting as blip and troponins and inverted T waves. To be managed conservatively. Patient's previously had a cardiac catheterization negative for disease. 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 We will let ERIN inhibitor and Aldactone -Hyperlipidemia, continue with Lipitor -Essential hypertension continue with Lopressor and Cozaar and Norvasc -Primary osteoarthritis, use Tylenol when necessary Encouraged to increase activity in the room. Continue current medication treatment plan. Discussed with the patient. Up in a chair.
[2020-11-13] MEDS: SODIUM CHLORIDE 5% OPHTH DROPS 15 ML BTL LEFT EYE SCH ×7 (00:16→23:10)
[2020-11-13] MEDS: SODIUM CHLORIDE 5% OPHTH DROPS 15 ML BTL RIGHT EYE SCH ×5 (04:25→23:10)
[2020-11-13] MEDS: SPIRONOLACTONE 25 MG TAB PO SCH (08:59)
[2020-11-13] MEDS: ENOXAPARIN 40 MG/0.4 ML SYRINGE SQ SCH (09:00)
[2020-11-13] MEDS: METOPROLOL TARTRATE 25 MG TAB PO SCH (09:00)
[2020-11-13] MEDS: ASCORBIC ACID 500 MG TAB PO SCH (09:00)
[2020-11-13] MEDS: LOSARTAN 50 MG TAB PO SCH (09:00)
[2020-11-13] MEDS: DEXAMETHASONE SOD PHOSPHATE 10 MG/ML 1 ML VIAL IV SCH (09:00)
[2020-11-13] MEDS: CHOLESTYRAMINE (WITH SUGAR) 4 GM PACKET PO SCH ×2 (09:00→15:47)
[2020-11-13] MEDS: ZINC SULFATE 220 MG CAP PO SCH (09:00)
--- NOTE | 2020-11-13 12:41 | P.PN ---
Subjective Progress Note Date: 11/13/20 History of present illness: This is a 75-year-old female with history of hypertension and abnormal EKG which is chronic, is admitted to the hospital mainly with complaints of nausea, diarrhea and GI symptoms and COVID symptoms. We're asked to see the patient because of abnormal troponin and also EKG. Patient did not express any chest pain. Most of the information is gathered from patient chart and cosmetic consultant notes. I did not personally examine the patient because of the COVID infection to limit the exposure. Patient was seen from a distance and doesn't appear to be in acute distress. Patient had a cardiac catheterization because of abnormal EKG in the recent past and was not found to have an obstructive coronary artery disease. Her troponins are mildly elevated but the pattern is not consistent with acute myocardial injury pattern. We'll get an echocardiogram and if the echo doesn't show any segmental wall motion defects and if patient remains without any chest pain, no further cardiac evaluation is suggested. Continue management as outlined by infectious disease. We'll follow as needed 11/12: Patient states that she still has occasional cough. She also has diarrhea. She denies having chest pain or shortness of breath. She does complain of pressure in her back. Echocardiogram revealed EF of 40-45% with moderate concentric left ventricular hypertrophy, trace mitral regurgitation, mild tricuspid regurgitation. Patient's echocardiogram was done in 2018 revealed normal ejection fraction. 11/13: The patient denies having any chest pain or shortness of breath. Her diarrhea is a little bit better today. She has been afebrile, heart rate 67, blood pressure 112/67, pulse ox 93% on room air. No lab reports this morning. Plan is to repeat echocardiogram on Saturday. Physical examination: Patient is not personally examined. 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 Patient was seen and examined. Objective - Vital Signs Vital signs: Vital Signs Temp 98.5 F 11/13/20 08:00 Pulse 67 11/13/20 08:00 Resp 18 11/13/20 08:00 BP 112/67 11/13/20 08:00 Pulse Ox 93 L 11/13/20 08:00 Intake & Output 11/12/20 11/13/20 11/13/20 17:59 06:59 18:59 Intake Total 10 Balance 10 Weight Intake: IV 10 Invasive Line 2 10 Oral Other: Voiding Method # Voids - Labs CBC & Chem 7: 11/10/20 12:33 11/11/20 06:25
--- NOTE | 2020-11-13 18:45 | PN ---
PROGRESS NOTE DATE OF SERVICE: 11/13/2020 REASON FOR FOLLOWUP: COVID-19 infection. INTERVAL HISTORY: The patient is currently afebrile. Patient is feeling better. Breathing comfortably. Denies any chest pain, shortness of breath or cough. No abdominal pain. Diarrhea has resolved. PHYSICAL EXAMINATION: Blood pressure 122/56, pulse of 62, temperature 98.2. She is 93% on steven air. General description is an elderly female lying in bed in no distress. Respiratory system: Unlabored breathing, clear to auscultation anteriorly. Heart S1, S2. Regular rate and rhythm. Abdomen soft, no tenderness. LABS: No new labs have been obtained today. DIAGNOSTIC IMPRESSION AND PLAN: Patient with COVID-19 infection. Overall clinical improvement. The patient will finish a short course of oral zinc, multivitamin, ascorbic acid on discharge. Continue supportive care. MMODL / IJN: [id number] /
[2020-11-13] MEDS: amLODIPine 5 MG TAB PO SCH (21:07)
[2020-11-13] MEDS: ATORVASTATIN 10 MG TAB PO SCH (21:07)
--- NOTE | 2020-11-13 21:46 | P.PN ---
Progress Note - Text Progress Note Date: 11/13/20 Chief Complaint: Cough and diarrhea History of presenting complaint: This is a pleasant 75-year-old patient, Dr. Griffith. Chronic stable medical conditions include hyperlipidemia, osteophyte nephritis, osteoporosis, Fuchs dystrophy. Patient now presents with having bothersome cough a few days. Anyway from 12 weeks. Has been having diarrhea for last 5 days. Anyway 2-6 bowel movements a day. Somewhat mushy. No blood in bowel pain. No significant shortness of breath. No dizziness. Decreased appetite. Has had fever and chills. No loss of smell or taste. She is totally tired and rundown. Patient did test positive for COVID 19. Pulse ox is good. Patient apparently had cardiac catheterizations recent past with no significant disease found. Admitted with COVID 19 infection with good pulse ox. Placed on Decadron and subcu Lovenox. Also felt to have COVID 19 myocarditis. Low EF. Placed on ERIN inhibitor and Aldactone. Today-Laying in bed. On the phone. Breathing is better. Oral intake between 25-50%. Review of systems: Was done for constitutional, cardiovascular, GI, pulmonary. relevant finding as above Active Medications Acetaminophen (Acetaminophen Tab 325 Mg Tab) 650 mg PO Q6HR PRN PRN Reason: Mild Pain or Fever > 100.5 Amlodipine Besylate (Amlodipine 5 Mg Tab) 5 mg PO [facility] Last Admin: 11/13/20 21:07 Dose: 5 mg Documented by: Ascorbic Acid (Ascorbic Acid 500 Mg Tab) 1,000 mg PO DAILY [facility] Last Admin: 11/13/20 09:00 Dose: 1,000 mg Documented by: Aspirin (Aspirin 81 Mg) 81 mg PO DAILY [facility] Atorvastatin Calcium (Atorvastatin 10 Mg Tab) 10 mg PO HS [facility] Last Admin: 11/13/20 21:07 Dose: 10 mg Documented by: Cholestyramine Resin (Cholestyramine (With Sugar) 4 Gm Packet) 4 gm PO BID@1000,1800 [facility] Last Admin: 11/13/20 15:47 Dose: Not Given Documented by: Dexamethasone Sodium Phosphate (Dexamethasone Sod Phosphate 10 Mg/Ml 1 Ml Vial) 6 mg IV DAILY [facility] Last Admin: 11/13/20 09:00 Dose: 6 mg Documented by: Enoxaparin Sodium (Enoxaparin 40 Mg/0.4 Ml Syringe) 40 mg SQ DAILY [facility] Last Admin: 11/13/20 09:00 Dose: 40 mg Documented by: Losartan Potassium (Losartan 50 Mg Tab) 50 mg PO DAILY [facility] Last Admin: 11/13/20 09:00 Dose: 50 mg Documented by: Metoprolol Tartrate (Metoprolol Tartrate 25 Mg Tab) 25 mg PO DAILY [facility] Last Admin: 11/13/20 09:00 Dose: 25 mg Documented by: Naloxone HCl (Naloxone 0.4 Mg/Ml 1 Ml Vial) 0.2 mg IV Q2M PRN PRN Reason: Opioid Reversal Sodium Chloride (Sodium Chloride 5% Ophth Drops 15 Ml Btl) 1 drops LEFT EYE Q4H [facility] Last Admin: 11/13/20 21:07 Dose: 1 drops Documented by: Sodium Chloride (Sodium Chloride 5% Ophth Drops 15 Ml Btl) 1 drops RIGHT EYE Q6H [facility] Last Admin: 11/13/20 21:07 Dose: 1 drops Documented by: Spironolactone (Spironolactone 25 Mg Tab) 12.5 mg PO DAILY [facility] Last Admin: 11/13/20 08:59 Dose: 12.5 mg Documented by: Zinc Sulfate (Zinc Sulfate 220 Mg Cap) 220 mg PO DAILY [facility] Last Admin: 11/13/20 09:00 Dose: 220 mg Documented by: Past medical history to include: Hyperactive hyperlipidemia, osteophyte arthritis, osteoporosis, Fuchs dystrophy Social history: Lives with her son. No history of smoking or alcohol Physical examination: VITAL SIGNS: 98.2, 62, 18, 1 22 x 16 6, 96% on room air GENERAL: Reclining in bed, comfortable PSYCH: Alert and oriented x3; mood and affect normal. Rest of exam as per cardiology, ID and nursing INVESTIGATIONS, reviewed in the clinical context: WBC 3.7 hemoglobin 15.1 platelets 149 lymphocytes this in 0.5 potassium 4.2 creatinine 0.69 Troponin I 0.037, 0.044, 0.036 Pro-calcitonin 0.05, CRP less than 5 UA-ketones 2+ Coronavirus [PCR]-detected EKG tracing personally reviewed by me-flipped T waves in anterolateral leads, with LVH, sinus rhythm 2-D echocardiogram-EF 40-45%, moderate concentric LVH Chest x-ray film personally reviewed by me-cardiomegaly no obvious infiltrate Assessment and plan: -Acute COVID 19 infection predominantly manifesting as cough and diarrhea. Patient is maintaining good pulse oximeter and no obvious infiltrates on the x- ray. Patient has been placed on Decadron and subcu Lovenox. -Acute viral myocarditis secondary to COVID 19 infection. Manifesting as blip and troponins and inverted T waves. To be managed conservatively. Patient's previously had a cardiac catheterization negative for disease. 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 ERIN inhibitor and Aldactone -Hyperlipidemia, continue with Lipitor -Essential hypertension continue with Lopressor and Cozaar and Norvasc -Primary osteoarthritis, use Tylenol when necessary Increase activity. Repeat echocardiogram tomorrow. Hopefully home tomorrow.
[2020-11-14 03:08] VITALS: RESP 18
[2020-11-14] MEDS: SODIUM CHLORIDE 5% OPHTH DROPS 15 ML BTL LEFT EYE SCH ×3 (04:01→12:11)
[2020-11-14 07:05] LABS: African American GFR (CKD) >90 (>60 ml/min/1.73 sqM); Anion Gap 5 mmol/L; Blood Urea Nitrogen 23 mg/dL (7-17); C Reactive Protein 13.2 mg/L (<10.0); Calcium 8.1 mg/dL (8.4-10.2); Carbon Dioxide 28 mmol/L (22-30); Chloride 106 mmol/L (98-107); Glucose 116 mg/dL (74-99); Non-African American GFR(CKD) >90 (>60 ml/min/1.73 sqM); Potassium 3.8 mmol/L (3.5-5.1); Sodium 139 mmol/L (137-145)
[2020-11-14] MEDS ORDERED: ASPIRIN 81 MG PO SCH (09:00)
[2020-11-14] MEDS: CHOLESTYRAMINE (WITH SUGAR) 4 GM PACKET PO SCH (10:12)
[2020-11-14] MEDS: SODIUM CHLORIDE 5% OPHTH DROPS 15 ML BTL RIGHT EYE SCH (10:32)
[2020-11-14] MEDS: SPIRONOLACTONE 25 MG TAB PO SCH (10:33)
[2020-11-14] MEDS: ASCORBIC ACID 500 MG TAB PO SCH (10:33)
[2020-11-14] MEDS: LOSARTAN 50 MG TAB PO SCH (10:33)
[2020-11-14] MEDS: METOPROLOL TARTRATE 25 MG TAB PO SCH (10:33)
[2020-11-14] MEDS: ZINC SULFATE 220 MG CAP PO SCH (10:33)
[2020-11-14] MEDS: ENOXAPARIN 40 MG/0.4 ML SYRINGE SQ SCH (10:34)
[2020-11-14] MEDS: DEXAMETHASONE SOD PHOSPHATE 10 MG/ML 1 ML VIAL IV SCH (10:34)
--- NOTE | 2020-11-14 11:35 | ECHOF ---
Referral Reason:Recheck ejection fraction MEASUREMENTS -------- HEIGHT: 154.9 cm WEIGHT: 62.6 kg BP: 111/59 IVSd: 1.2 cm (0.6 - 1.1) LVIDd: 4.6 cm (3.9 - 5.3) LVPWd: 1.2 cm (0.6 - 1.1) RAP: 5.00 mmHg RVSP: 26.13 mmHg FINDINGS -------- Sinus rhythm. Limited Study Overall left ventricular systolic function is normal with, an EF between 60 - 65 %. There is apical left ventricular hypertrophy measuring 2.0cm which may be consistent with apical hypertrophic cardio myopathy. Clinical correlation recommended. [id number] mitral regurgitation is present. Mild tricuspid regurgitation present. Right ventricular systolic pressure is normal at < 35 mmHg. There is no pericardial effusion. CONCLUSIONS -------- 1. Limited Study 2. Overall left ventricular systolic function is normal with, an EF between 60 - 65 %. 3. There is apical left ventricular hypertrophy measuring 2.0cm which may be consistent with apical h ypertrophic cardiomyopathy. Clinical correlation recommended. 4. [id number] mitral regurgitation is present. 5. Mild tricuspid regurgitation present. 6. There is no pericardial effusion. BELLHOP: Shobha Garcia RDCS
--- NOTE | 2020-11-14 12:57 | P.PN ---
Subjective Progress Note Date: 11/14/20 HISTORY OF PRESENT ILLNESS: This is a 75-year-old female with history of hypertension and abnormal EKG which is chronic, is admitted to the hospital mainly with complaints of nausea, diarrhea and GI symptoms and COVID symptoms. We're asked to see the patient because of abnormal troponin and also EKG. Patient did not express any chest pain. Most of the information is gathered from patient chart and commercial sales consultant notes. I did not personally examine the patient because of the COVID infection to limit the exposure. Patient was seen from a distance and doesn't appear to be in acute distress. Patient had a cardiac catheterization because of abnormal EKG in the recent past and was not found to have an obstructive coronary artery disease. Her troponins are mildly elevated but the pattern is not consistent with acute myocardial injury pattern. We'll get an echocardiogram and if the echo doesn't show any segmental wall motion defects and if patient remains with out any chest pain, no further cardiac evaluation is suggested. Continue management as outlined by infectious disease. We'll follow as needed 11/12: Patient states that she still has occasional cough. She also has diarrhea. She denies having chest pain or shortness of breath. She does complain of pressure in her back. Echocardiogram revealed EF of 40-45% with moderate concentric left ventricular hypertrophy, trace mitral regurgitation, mild tricuspid regurgitation. Patient's echocardiogram was done in 2018 revealed normal ejection fraction. 11/13: The patient denies having any chest pain or shortness of breath. Her diarrhea is a little bit better today. She has been afebrile, heart rate 67, blood pressure 112/67, pulse ox 93% on room air. No lab reports this morning. Plan is to repeat echocardiogram on Saturday. 11/14/2020 Repeat echocardiogram completed revealed ejection fraction 60-65%, apical left ventricular hypertrophy with may be consistent with apical hypertrophic cardiomyopathy, [id number] mitral regurgitation, and mild tricuspid regurgitation. Patient's vital signs are stable. She is afebrile. She is on room air with oxygen saturations greater than 92%. PHYSICAL EXAM: Thorough physical exam not completed secondary to limited evaluation/examination and due to Covid19 ASSESSMENT: Acute Covid 19 Chronic T-wave abnormalities in anterior lateral leads, unchanged Nonischemic cardiomyopathy, EF 40-45%, repeat echo shows EF 60-65% Hypertension Hyperlipidemia PLAN: Continue current cardiac medications We will follow on an as-needed basis. Please call with questions or concerns. Nurse practitioner note has been reviewed by physician. Signing provider agrees with the documented findings, assessment, and plan of care. Objective - Vital Signs Vital signs: Vital Signs Temp 98.0 F 11/14/20 04:00 Pulse 65 11/14/20 04:00 Resp 18 11/14/20 04:00 BP 111/59 11/14/20 04:00 Pulse Ox 92 L 11/14/20 04:00 Intake & Output 11/13/20 11/14/20 11/14/20 18:59 06:59 18:59 Intake Total 618 310 120 Balance 618 310 120 Weight 63 kg Intake: IV 20 10 Invasive Line 2 20 10 Oral 598 300 120 Other: Voiding Method Toilet # Voids 3 - Labs CBC & Chem 7: 11/10/20 12:33 11/14/20 06:15 Labs: Abnormal Lab Results - Last 24 Hours (Table) 11/14/20 Range/Units 06:15 BUN 23 H (7-17) mg/dL Glucose 116 H (74-99) mg/dL Calcium 8.1 L (8.4-10.2) mg/dL C-Reactive Protein 13.2 H (<10.0) mg/L
[2020-11-14 13:03] VITALS: BP 117/68; PULSE 60; TEMP 98.2
--- NOTE | 2020-11-14 13:23 | PN ---
PROGRESS NOTE DATE OF SERVICE: 11/14/2020 REASON FOR FOLLOWUP: COVID-19 infection. INTERVAL HISTORY: The patient is currently afebrile. The patient is feeling better. Breathing comfortably. Currently on room air. Denies having any chest pain, no shortness of breath. Minimal cough. No abdominal pain. Diarrhea has resolved. PHYSICAL EXAMINATION: Blood pressure 111/59 with a pulse of 65, temperature 98. She is 92% on room air. General description is an elderly female lying in bed in no distress. RESPIRATORY SYSTEM: Unlabored breathing, decreased intensity of breath sounds. No wheeze. HEART: S1, S2. Regular rate and rhythm. ABDOMEN: Soft, no tenderness. LABS: BUN of 23, creatinine 0.58. D-dimer is 0.38. CRP slightly elevated. DIAGNOSTIC IMPRESSION AND PLAN: Patient with acute COVID-19 infection overall clinical improvement. Questran as needed for her diarrhea and may be a short course dexamethasone, Zinc, ascorbic acid on discharge and close outpatient followup. MMODL / IJN: [id number] /
--- NOTE | 2020-11-15 23:47 | P.DS ---
Providers Date of admission: 11/11/20 07:41 Expected date of discharge: 11/14/20 Attending physician: Ayo Post Consults: 11/10/20 14:39 Consult Physician Routine Consulting Provider: Edi Munoz Consult Reason/Comments: COVID Do you want consulting provider notified?: Yes 11/10/20 16:02 Consult Physician Routine Consulting Provider: Ángel Hsieh Consult Reason/Comments: covid Do you want consulting provider notified?: Yes Primary care physician: [facility] Course: Chief Complaint: Cough and diarrhea History of presenting complaint: This is a pleasant 75-year-old patient, Dr. Griffith. Chronic stable medical conditions include hyperlipidemia, osteoarthritis, osteoporosis, Fuchs dystrophy. Patient now presents with having bothersome cough a few days. Anyway from 12 weeks. Has been having diarrhea for last 5 days. Normally has 2-6 bowel movements a day. Somewhat mushy. No blood in bowel pain. No significant shortness of breath. No dizziness. Decreased appetite. Has had fever and chills. No loss of smell or taste. She is totally tired and rundown. Patient did test positive for COVID 19. Pulse ox is good. Patient apparently had cardiac catheterizations recent past with no significant disease found. Admitted with COVID 19 infection with good pulse ox. Placed on Decadron and subcu Lovenox. Also felt to have COVID 19 myocarditis. Low EF 40-45%. Placed on ERIN inhibitor and Aldactone. Repeat echocardiogram EF came up to 60-65%. Today-doing better. Much improved as per symptoms. Care was discussed with the patient. Questions answered. Oral intake is fair. 96% room air. Discussed with Dr. Hart. Patient to follow-up with with cardiology and ID Consultation: Dr. Munoz from [facility] Past medical history to include: Hyperactive hyperlipidemia, osteophyte arthritis, osteoporosis, Fuchs dystrophy Social history: Lives with her son. No history of smoking or alcohol Physical examination: VITAL SIGNS: 98.2, 60, 18, 117/68, 96% room air GENERAL: Sitting up comfortable PSYCH: Alert and oriented x3; mood and affect normal. Rest of exam as per cardiology, ID and nursing INVESTIGATIONS, reviewed in the clinical context: WBC 3.7 hemoglobin 15.1 platelets 149 lymphocytes this in 0.5 potassium 4.2 creatinine 0.69 Troponin I 0.037, 0.044, 0.036 Pro-calcitonin 0.05, CRP less than 5 UA-ketones 2+ Coronavirus [PCR]-detected EKG tracing personally reviewed by me-flipped T waves in anterolateral leads, with LVH, sinus rhythm 2-D echocardiogram-EF 40-45%, moderate concentric LVH Chest x-ray film personally reviewed by me-cardiomegaly no obvious infiltrate Assessment and plan: -Acute COVID 19 infection predominantly manifesting as cough and diarrhea. Patient is maintaining good pulse oximeter and no obvious infiltrates on the x- ray. Patient has been placed on Decadron and subcu Lovenox. -Acute viral myocarditis secondary to COVID 19 infection. ( Patient's previously had a cardiac catheterization negative for disease. 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 ERIN inhibitor and Aldactone. Improved to EF 60-75%. -Hyperlipidemia, continue with Lipitor -Essential hypertension continue with Lopressor and Cozaar and Norvasc -Primary osteoarthritis, use Tylenol when necessary Disposition: Home Plan - Discharge Summary Discharge Rx Participant: No New Discharge Prescriptions: New Aspirin 81 mg PO DAILY chew Dexamethasone [Decadron] 6 mg PO DAILY #7 tablet Zinc Sulfate [Orazinc] 220 mg PO DAILY #30 cap Ascorbic Acid [Vitamin C] 1,000 mg PO DAILY #30 tab Continue Losartan [Cozaar] 50 mg PO DAILY Atorvastatin [Lipitor] 10 mg PO HS Sodium Chloride 5% Ophth Soln [Rodney 128] 1 drops LEFT EYE Q4H amLODIPine [Norvasc] 5 mg PO HS Changed Metoprolol Tartrate [Lopressor] 12.5 mg PO BID #0 Discontinued Sodium Chloride 5% Ophth Soln [Rodney 128] 1 drops RIGHT EYE Q6H Azithromycin [Zithromax Z-pack (6 tabs)] See Taper PO DAILY Discharge Medication List Atorvastatin [Lipitor] 10 mg PO HS 02/24/18 [History] Losartan [Cozaar] 50 mg PO DAILY 02/24/18 [History] Sodium Chloride 5% Ophth Soln [Rodney 128] 1 drops LEFT EYE Q4H 02/24/18 [History] amLODIPine [Norvasc] 5 mg PO HS 11/10/20 [History] Ascorbic Acid [Vitamin C] 1,000 mg PO DAILY #30 tab 11/14/20 [Rx] Aspirin 81 mg PO DAILY chew 11/14/20 [Rx] Dexamethasone [Decadron] 6 mg PO DAILY #7 tablet 11/14/20 [Rx] Metoprolol Tartrate [Lopressor] 12.5 mg PO BID #0 11/14/20 [Rx] Zinc Sulfate [Orazinc] 220 mg PO DAILY #30 cap 11/14/20 [Rx] Follow up Appointment(s)/Referral(s): Anthony Velázquez MD [STAFF PHYSICIAN] - 12/13/20 8:45 am Siva Griffith DO [Primary Care Provider] - 1-2 days (THE OFFICE WILL CALL YOU TO SCHEDULE FOLLOW UP APPOINTMENT. SPOKE WITH WOLF AT DESK. ) Edi Munoz MD [STAFF PHYSICIAN] - 11/21/20 2:45 pm (Phone appointment. The office will call. ) Patient Instructions/Handouts: Coronavirus Disease 2019 (COVID-19), Acute Coronary Syndrome (DC) Activity/Diet/Wound Care/Special Instructions: post covid dc instructions Discharge Disposition: HOME SELF-CARE
== END 2020-11-14 16:10 | disposition home or self-care (01) | DRG 177 ==
LOC: EC 11:42 → 3SCARD 14:44 → OBSVTOIN 11-11 07:41
PROVIDERS: ADMIT Hospitalist; ATTEND Hospitalist
DX: U07.1 COVID-19 (principal); I40.9 Acute myocarditis, unspecified; I40.0 Infective myocarditis; I42.8 Other cardiomyopathies; B33.24 Viral cardiomyopathy; D72.810 Lymphocytopenia; E78.5 Hyperlipidemia, unspecified; H18.519 Endothelial corneal dystrophy, unspecified eye; I10 Essential (primary) hypertension; M19.91 Primary osteoarthritis, unspecified site; M81.0 Age-related osteoporosis without current pathological fracture; Z79.899 Other long term (current) drug therapy; Z80.0 Family history of malignant neoplasm of digestive organs; Z82.49 Family history of ischemic heart disease and other diseases of the circulatory system; Z83.3 Family history of diabetes mellitus; Z90.710 Acquired absence of both cervix and uterus; R79.89 Other specified abnormal findings of blood chemistry; Z87.01 Personal history of pneumonia (recurrent); R19.7 Diarrhea, unspecified; M25.70 Osteophyte, unspecified joint; Z82.3 Family history of stroke; Z88.1 Allergy status to other antibiotic agents; Z88.7 Allergy status to serum and vaccine; Z98.42 Cataract extraction status, left eye; Z98.41 Cataract extraction status, right eye
CPT/HCPCS: 36415; 71045; 80048; 80053; 81003; 82728; 83605; 83615; 83690; 83735; 84145; 84484; 85025; 85379; 86140; 87324; 87635; 93005; 93306; 93308; 96361; 96374; 99285

== ENCOUNTER → 2021-12-13 | Outpatient (CLI) | payer MEDICARE ==
--- NOTE | 2021-12-13 22:29 | CT ---
EXAMINATION TYPE: CT angio chest DATE OF EXAM: 12/13/2021 COMPARISON: CT dated 02/24/2018 HISTORY: thoracic aortic aneurysm CT DLP: 325.5 mGy.cm. Automated Exposure Control for Dose Reduction was Utilized. TECHNIQUE AND CONTRAST: CTA scan of the thorax is performed without and with IV Contrast, patient injected with 80 mL of Isov ue 370, thoracic aortic angiogram protocol. MIP and 3-D reconstruction Images are created on an ind epLookery workstation and reviewed. FINDINGS: The ascending aorta measures 3.3 cm, stable. Stable focal dilatation of the proximal portion of the d escending thoracic aorta measuring up to 3.3 cm. Tortuous thoracic aorta with scattered arterial athe rosclerotic calcifications. Otherwise unremarkable remainder of the thoracic and upper abdominal aort a. No major or central pulmonary embolism. Left ventricular hypertrophy, please correlate with echocardiographic results. 9 mm subcarinal lymph node with 9 mm precarinal aortopulmonary lymph node. Associated prominent bilateral hilar and other m ediastinal lymph nodes measuring up to 6 mm in the right hilum and 8mm in the left hilum, slightly pr ogressed compared to the previous CT scan. Attention on follow-up. Unremarkable lungs. Patent trachea and main bronchi. No pleural or pericardial effusion. Small thyroi d gland. Dilated CBD measuring 15 mm, please correlate with bilirubin level. Mild dextroscoliosis of the lower thoracic spine and moderate levoscoliosis of the thoracolumbar junction. Degenerative robertson es of the lower cervical and upper thoracic spine. IMPRESSION: Stable dilated proximal portion of the descending thoracic aorta measuring up to 3.3 cm. Tortuous amairani cending aorta, appreciated previously. Unremarkable thoracic and upper abdominal aorta otherwise. Scattered bilateral hilar and mediastinal subcentimeter lymph nodes yet progressed compared to the pr evious CT scan, follow-up CT scan in 2-3 months can be considered. Other incidental findings as descr ibed above.
== END | disposition home or self-care (01) ==
LOC: RADCTMAIN 15:19
PROVIDERS: ATTEND Family Medicine
DX: I77.810 Thoracic aortic ectasia (principal)
CPT/HCPCS: 82565; 84520; 71275; 36415; Q9967

== ENCOUNTER → 2022-01-11 | Outpatient (CLI) | payer MEDICARE ==
--- NOTE | 2022-01-12 12:32 | MM ---
Reason for exam: screening (asymptomatic). Last mammogram was performed 1 year and 8 months ago. History: Patient is postmenopausal. Family history of breast cancer in maternal aunt at age 60. Benign cyst aspiration of the left breast, 1999. Benign excisional biopsy of the left breast, 1999. Physical Findings: A clinical breast exam by your physician is recommended on an annual basis and results should be correlated with mammographic findings. MG 3D Screening Mammo W/Cad Bilateral CC and MLO view(s) were taken. Prior study comparison: May 20, 2020, bilateral MG 3d screening mammo w/cad. April 29, 2019, bilateral MG 3d screening mammo w/cad. The breast tissue is heterogeneously dense. This may lower the sensitivity of mammography. There is no discrete abnormality. No significant changes when compared with prior studies. ASSESSMENT: Negative, BI-RAD 1 RECOMMENDATION: Routine screening mammogram of both breasts in 1 year.
== END | disposition home or self-care (01) ==
LOC: RADMAMWWP 13:07
PROVIDERS: ATTEND Family Medicine
DX: Z12.31 Encounter for screening mammogram for malignant neoplasm of breast (principal); Z78.0 Asymptomatic menopausal state; Z80.3 Family history of malignant neoplasm of breast
CPT/HCPCS: 77063; 77067

== ENCOUNTER → 2022-04-05 | Outpatient (CLI) | payer MEDICARE ==
--- NOTE | 2022-04-05 13:16 | CT ---
EXAMINATION TYPE: CT chest w con CT DLP: 376 mGycm, Automated exposure control for dose reduction was used. DATE OF EXAM: 04/05/2022 1:00 PM COMPARISON: CTA chest 12/13/2021, CTA chest abdomen pelvis.. CLINICAL INDICATION:Female, 77 years old with history of R59.0 localized enlarged lymph nodes; TECHNIQUE: Multiple axial images were obtained through the chest following the administration of 100 cc of Isovue 300. Coronal and sagittal reformats reviewed. FINDINGS: LUNGS/ PLEURA: No pleural effusion, pneumothorax, focal consolidation. No suspicious pulmonary nodule s or masses. AIRWAY: Patent and unremarkable.. HEART: Mildly enlarged but stable. Left ventricular hypertrophy. No pericardial effusion.. MEDIASTINUM/HILUM: Stable prominent 9 mm short axis precarinal lymph node (series 3, image 22). No ot her enlarged mediastinal hilar lymph nodes identified. VASCULATURE: The ascending aorta measures 3.3 cm, stable. Stable focal dilatation of the proximal po rtion of the descending thoracic aorta measuring up to 3.3 cm. Tortuous thoracic aorta with scattered arterial atherosclerotic calcifications. MUSCULOSKELETAL: No acute osseous abnormalities. Scoliotic curvature of the visualized spine. SOFT TISSUES/LYMPH NODES: Unremarkable. LOWER NECK: No significant findings. UPPER ABDOMEN: Small hiatal hernia. Mild intra and extra hepatic biliary ductal dilatation with the c ommon bile duct measuring up to 1.5 cm. This is new from prior examination 2018. IMPRESSION: 1. No acute thoracic process. 2. Stable prominent precarinal lymph node. No new or enlarging mediastinal or hilar lymph nodes. 3. Stable dilated proximal portion of descending thoracic aorta measuring up to 3.3 cm. 4. Mild intra and extrahepatic biliary ductal dilatation with common bile duct measuring up to 1.5 cm . Further evaluation with MRCP is recommended.
== END | disposition home or self-care (01) ==
LOC: RADCTMAIN 11:13
PROVIDERS: ATTEND Family Medicine
DX: K83.9 Disease of biliary tract, unspecified (principal); R59.0 Localized enlarged lymph nodes
CPT/HCPCS: 82565; 84520; 71260; 36415; Q9967

== ENCOUNTER → 2023-01-23 | Outpatient (CLI) | payer MEDICARE ==
--- NOTE | 2023-01-24 20:29 | MM ---
Reason for Exam: Screening (asymptomatic). Last screening mammogram was performed 12 month(s) ago. Patient History: Menarche at age 14. First Full-Term at age 19. Hysterectomy at age 35. Postmenopausal. 1999, Benign Cyst Aspiration on the left side. 1999, Benign Excisional Biopsy on the left side. Maternal aunt had breast cancer, age 60. Risk Values: Jennifer 5 year model risk: 1.5%. NCI Lifetime model risk: 3.1%. Prior Study Comparison: 04/29/2019 Bilateral Screening Mammogram, [facility]. 05/20/2020 Bilateral Screening Mammogram, [facility]. 01/11/2022 Bilateral Screening Mammogram, [facility]. Tissue Density: The breast tissue is heterogeneously dense. This may lower the sensitivity of mammography. Findings: Analyzed By CAD. Surgical clips left breast. Postexcisional changes on the left as well. Areas of asymmetric density on the right remain unchanged. There is no suspicious group of microcalcifications or new suspicious mass in either breast. Overall Assessment: Benign, BI-RAD 2 Management: Screening Mammogram of both breasts in 1 year. . Patient should continue monthly self-breast exams. A clinical breast exam by your physician is recommended on an annual basis. This exam should not preclude additional follow-up of suspicious palpable abnormalities. Note on Jennifer scores and lifetime risk: 1. A Jennifer score greater than 3% is considered moderate risk. If this is the case, consider specialist referral to assess eligibility for a risk reducing agent. 2. If overall lifetime risk for the development of breast cancer is 20% or higher, the patient may qualify for future screening with alternating mammogram and breast MRI. Electronically signed and approved by: Ambrose Jj M.D. Radiologist
== END | disposition home or self-care (01) ==
LOC: RADMAMWWP 12:51
PROVIDERS: ATTEND Family Medicine
DX: Z12.31 Encounter for screening mammogram for malignant neoplasm of breast (principal); Z78.0 Asymptomatic menopausal state; Z80.3 Family history of malignant neoplasm of breast
CPT/HCPCS: 77063; 77067

== ENCOUNTER → 2023-03-01 | Day surgery (SDC) | payer MEDICARE ==
[2023-02-27 12:13] VITALS: BMI 23.4
[~2023-03-01] MED LIST: LACTATED RINGERS 1,000 ML IV SCH; LIDOCAINE 2% INJ 20 MG/ML (2 ML VIAL) ONE; PROPOFOL 10 MG/ML 20 ML VIAL IV ONE
[2023-03-01 11:53] VITALS: TEMP 97.6
--- NOTE | 2023-03-01 13:06 | P.PCN ---
Date of Procedure: 03/01/23 Procedure(s) Performed: BRIEF HISTORY: Patient is a 77-year-old pleasant white female scheduled for an elective colonoscopy as a part of the colon cancer and family history of colon cancer. Her daughter was diagnosed with colon cancer at age 52. PROCEDURE PERFORMED: Colonoscopy. PREOPERATIVE DIAGNOSIS: Screening for colon cancer/family history of colon cancer. IV sedation per Anesthesia. PROCEDURE: After informed consent was obtained, the patient, was brought into the endoscopy unit. IV sedation was administered by Anesthesia under continuous monitoring. Digital rectal examination was normal. Initially the Olympus CF-160 flexible video colonoscope was then inserted in the rectum, gradually advanced into the cecum without any difficulty. Careful examination was performed as the scope was gradually being withdrawn. Ileocecal valve and the appendiceal orifice were visualized and appeared normal. Prep was excellent. Mucosa of the cecum, ascending colon, transverse colon, descending colon, sigmoid colon, and rectum appeared normal. At her sigmoid diverticula cyst. Retroflexion was performed in the rectum and monitor hemorrhoids were seen. The patient tolerated the procedure well. IMPRESSION: Normal-appearing colon from rectum to cecum with no evidence of colorectal neoplasia Sigmoid diverticulosis Small internal hemorrhoids. RECOMMENDATIONS: Findings of this examination were discussed with the patient is a family. He was advised to have a repeat screening colonoscopy in 5 years from now because of the family history of colon cancer
[2023-03-01 13:18] VITALS: RESP 16
[2023-03-01 13:32] VITALS: BP 108/68; PULSE 55
== END ==
LOC: ORWHC2ENDO 10:55
PROVIDERS: ATTEND Internal Medicine Gastroenterology
DX: Z12.11 Encounter for screening for malignant neoplasm of colon (principal); Z80.0 Family history of malignant neoplasm of digestive organs; K57.30 Diverticulosis of large intestine without perforation or abscess without bleeding; K64.8 Other hemorrhoids; I10 Essential (primary) hypertension; E78.5 Hyperlipidemia, unspecified; M81.0 Age-related osteoporosis without current pathological fracture; M19.90 Unspecified osteoarthritis, unspecified site; Z86.73 Personal history of transient ischemic attack (TIA), and cerebral infarction without residual deficits; Z86.69 Personal history of other diseases of the nervous system and sense organs; Z79.82 Long term (current) use of aspirin; Z79.899 Other long term (current) drug therapy; Z88.7 Allergy status to serum and vaccine; Z88.8 Allergy status to other drugs, medicaments and biological substances
CPT/HCPCS: G0105; J2704; J2001; 45378

== ENCOUNTER → 2023-04-25 | Outpatient (CLI) | payer MEDICARE ==
[2023-04-25 13:28] LABS: African American GFR (CKD) >90 (>60 ml/min/1.73 sqM); Blood Urea Nitrogen 22 mg/dL (7-17); Non-African American GFR(CKD) 80 (>60 ml/min/1.73 sqM)
--- NOTE | 2023-04-25 15:03 | CT ---
EXAMINATION TYPE: CT angio chest CT DLP: 325.9 mGycm, Automated exposure control for dose reduction was used. DATE OF EXAM: 04/25/2023 2:20 PM COMPARISON: CT chest 04/05/2022, CTA chest 12/13/2021 CLINICAL INDICATION:Female, 78 years old with history of I71.20; thoracic aortic aneurysm w/o rupture TECHNIQUE/CONTRAST: CTA scan of the thorax is performed before and after the uneventful administration of 100 cc of Isovu e 370 intravenously. 3-D reformats were created on a separate workstation. FINDINGS: Lungs/Pleura: No evidence of focal consolidation, pleural effusion or pneumothorax. No suspicious pul monary nodules or masses. Airway: Large airways are patent. Heart: Mildly enlarged. No pericardial effusion. Vasculature: Stable ascending aorta measuring up to 3.3 cm. Stable focal dilatation of the proximal c ourse of the descending thoracic aorta measuring up to 3.3 cm. No evidence for intramural hematoma or dissection. Three-vessel aortic arch. Tortuous thoracic aorta with scattered arterial atheroscleroti c calcifications. No pulmonary embolism. Mediastinum: No evidence of adenopathy. Musculoskeletal: No acute osseous abnormalities. Scoliotic curvature of the thoracic spine. Soft Tissues: Unremarkable. Lower neck: No significant findings. Upper Abdomen: Small hiatal hernia. Stable mild intrahepatic and extra hepatic biliary ductal dilatat ion. IMPRESSION: Stable dilatation of the proximal portion of the descending thoracic aorta measuring up to 3.3 cm. No evidence for intramural hematoma or dissection.
== END | disposition home or self-care (01) ==
LOC: RADCTMAIN 12:30
PROVIDERS: ATTEND Family Medicine
DX: I71.23 Aneurysm of the descending thoracic aorta, without rupture (principal)
CPT/HCPCS: 82565; 84520; 71275; 36415; Q9967

== ENCOUNTER → 2024-01-29 | Outpatient (CLI) | payer MEDICARE ==
--- NOTE | 2024-01-29 22:49 | MM ---
Reason for Exam: Screening (asymptomatic). Last screening mammogram was performed 12 month(s) ago. Patient History: Menarche at age 14. First Full-Term at age 19. Hysterectomy at age 35. Postmenopausal. 1999, Benign Cyst Aspiration on the left side. 1999, Benign Excisional Biopsy on the left side. Maternal aunt had breast cancer, age 60. Risk Values: Jennifer 5 year model risk: 1.5%. NCI Lifetime model risk: 2.9%. Prior Study Comparison: 05/20/2020 Bilateral Screening Mammogram, [facility]. 01/11/2022 Bilateral Screening Mammogram, [facility]. 01/23/2023 Bilateral MG 3D screening mammo w/cad, [facility]. Tissue Density: There are scattered areas of fibroglandular density. Findings: Analyzed By CAD. The pattern is symmetrical. Chronic nodularity is within the left breast. A surgical clip is within the left breast. No suspicious groups of microcalcifications, spiculated or lobular masses, architectural distortion or other secondary signs of malignancy are mammographically apparent. Overall Assessment: Benign, BI-RAD 2 Management: Screening Mammogram of both breasts in 1 year. A negative mammogram report should not preclude additional follow up of suspicious palpable abnormalities. Patient should continue monthly self breast exam. A clinical breast exam by your physician is recommended on an annual basis and results should be correlated with mammographic findings. Note on Jennifer scores and lifetime risk: 1. A Jennifer score greater than 3% is considered moderate risk. If this is the case, consider specialist referral to assess eligibility for a risk reducing agent. 2. If overall lifetime risk for the development of breast cancer is 20% or higher, the patient may qualify for future screening with alternating mammogram and breast MRI. Electronically signed and approved by: Siva Soto D.O. Radiologis
== END | disposition home or self-care (01) ==
LOC: RADMAMWWP 11:36
PROVIDERS: ATTEND Family Medicine
DX: Z12.31 Encounter for screening mammogram for malignant neoplasm of breast (principal); Z78.0 Asymptomatic menopausal state; Z80.3 Family history of malignant neoplasm of breast
CPT/HCPCS: 77063; 77067